=== PATIENT | female | born 1955 | race Caucasian/White ===

== ENCOUNTER 2018-06-11 11:21 | Inpatient (IN) ==
[2018-06-11] MEDS ORDERED: *HR* HYDROcodone/Acet 5/325 mg TABLET PO ONE (11:30)
--- NOTE | 2018-06-11 11:34 | Emergency Department Note ---
Disposition Clinical Impression: Femoral fracture Qualifiers: Encounter type: initial encounter Femur location: distal physis (incl. Salter- Bermudez) Salter-Bermudez Fracture Type: unspecified configuration Laterality: right Qualified Code(s): S79.101A - Unspecified physeal fracture of lower end of right femur, initial encounter for closed fracture Phalanx fracture, foot Qualifiers: Encounter type: initial encounter Toe: great toe Fracture type: closed Phalanx: unspecified phalanx Fracture alignment: nondisplaced Laterality: left Qualified Code(s): S92.405A - Nondisplaced unspecified fracture of left great toe, initial encounter for closed fracture Disposition: Admitted As Inpatient General Adult HPI - General Chief complaint: ED Extremity Injury, Lower Stated complaint: fall Time Seen by Provider: 06/11/18 11:25 Source: patient Limitations: no limitations Nursing Notes Reviewed: Yes Vital Signs Reviewed: Yes - History of Present Illness HPI Narrative: 62-year-old female with a BMI 54 presents with fall evaluation. The patient was tripped on carpet and fell forward on her knees this morning. She supported herself with the right elbow. Patient could not stand up after the injury. Patient complaint of bilateral knees pain, left great toe pain, and right elbow pain. Patient denied loss of consciousness. Pain Scale: 7 - Related Data Home Medications Medication Instructions Recorded Confirmed Aspirin [Ecotrin] 325 mg PO DAILY 09/20/17 09/20/17 Atorvastatin [Lipitor] 40 mg PO HS 09/20/17 09/20/17 Clopidogrel [Plavix] 75 mg PO DAILY 09/20/17 09/20/17 Insulin Aspart Prot/Insuln Asp 30 unit SQ QPM 09/20/17 09/20/17 [Novolog Mix 70-30 Vial] Insulin Aspart Prot/Insuln Asp 40 unit SQ QAM 09/20/17 09/20/17 [Novolog Mix 70-30 Vial] OxyCODONE/APAP 5/325 [Percocet 1 each PO Q8HR PRN 09/20/17 09/20/17 5/325 MG] Allergies Allergy/AdvReac Type Severity Reaction Status Date / Time No Known Allergies Allergy Verified 06/17/15 20:42 Constitutional: Denies: fever, chills Eyes: Denies: eye pain ENT ED: Denies: ear pain Cardiovascular: Denies: chest pain Respiratory: Denies: cough Gastrointestinal: Denies: abdominal pain Genitourinary: Denies: urgency Musculoskeletal: Reports: joint swelling, arthralgia. 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 - Social History Smoking Status: Never smoker Smokeless Tobacco Status: No Alcohol use: Reports: rarely Drug use: Reports: none Physical Exam - General Limitations: no limitations General appearance: alert, in no apparent distress - Head Head exam: atraumatic - Eye Eye exam: Present: normal appearance - ENT ENT exam: normal exam - Neck Neck exam: Present: normal inspection - Chest Chest inspection: Present: normal inspection - Respiratory Respiratory exam: Present: normal lung sounds bilaterally - Cardiovascular Cardiovascular exam: Present: regular rate - Abdominal Exam Abdominal exam: Present: soft, Non-Tender - Expanded Upper Extremity Exam Elbow exam: Present: normal inspection, full ROM, tenderness - Expanded Lower Extremity Exam Upper leg exam: Present: tenderness, swelling. Absent: normal inspection, full ROM Knee exam: Present: tenderness, swelling. Absent: normal inspection, full ROM Foot/toe exam: Present: normal inspection, full ROM, tenderness Neurovascular/Tendon exam: Present: normal capillary refill - Back Exam Back exam: Present: normal inspection - Neurological Exam Neurological exam: Present: alert, oriented X3 - Psychiatric Psychiatric exam: Present: normal affect - Skin Skin exam: Present: warm, intact Course Vital Signs Temperature 0 F L 06/11/18 11:26 Pulse Rate 75 06/11/18 11:26 Respiratory Rate 16 06/11/18 11:26 Blood Pressure 101/63 06/11/18 11:26 O2 Sat by Pulse Oximetry 97 06/11/18 11:26 Temperature 0 F L 06/11/18 11:26 Pulse Rate 75 06/11/18 11:26 Respiratory Rate 16 06/11/18 11:26 Blood Pressure 101/63 06/11/18 11:26 O2 Sat by Pulse Oximetry 97 06/11/18 11:26 Oxygen Delivery Oxygen Delivery Room Air Medical Decision Making - MDM Narrative Medical decision making narrative: 62 year old female with history of diabetes, BMI 54 presents with fall evaluation. Pt was tripped on carpet and fell on her knee. She caught herself with right elbow. Pt couldn't stand up after the injury. Pt complain of bilateral knees pain, left great toe pain and right elbow pain. Xr indicated distal left femoral fracture and left 1st proximal phalanx fracture. Spoke with Orthopedics Dr. Watt regarding femoral fracture. Dr. Watt suggested to admit the patient in hospital for possible surgery. Knee immobolizer applied in ER. NPO from now. Pt and her family understand and agree the above plan. Dr. Landers has seen the patient and agrees the above plan. - Lab Data Lab results reviewed: Yes I reviewed the patient's lab results. Result diagrams: 06/11/18 13:03 06/11/18 13:03 Lab Results 06/11/18 06/11/18 06/11/18 Range/Units 13:03 13:03 13:03 WBC 12.4 H (4.3-11.1) K/mcL RBC 4.07 (3.82-4.97) M/mcL Hgb 12.2 (11.5-15.4) g/dL Hct 38.7 (35.3-44.9) % MCV 95.1 (83.0-100.0) fL MCH 30.0 (28.0-33.3) pg MCHC 31.5 L (31.6-35.5) g/dL RDW 14.3 (11.5-14.5) % Plt Count 231 (140-400) K/mcL MPV 9.1 L (9.4-12.4) fL Immature Gran % 0.5 (0-4) % Seg Neutrophils % 78.6 % Lymphocytes % 14.3 % Monocytes % 5.4 % Eosinophils % 0.8 % Basophils % 0.4 % Neutrophils # 9.8 H (1.6-8.9) K/mcL Lymphocytes # 1.8 (0.6-4.6) K/mcL Monocytes # 0.7 (0.0-1.3) K/mcL Eosinophils # 0.1 (0.0-0.6) K/mcL Basophils # 0.1 (0.0-0.2) K/mcL PT 11.9 (9.4-12.1) Seconds INR 1.1 Sodium 138 (136-145) mEq/L Potassium 3.8 (3.5-5.1) mEq/L Chloride 103 (98-107) mEq/L Carbon Dioxide 24 (23-29) mEq/L BUN 14 (8-23) mg/dL Creatinine 1.05 (0.60-1.20) mg/dL Est GFR ( Amer) > 60 (> 60) Est GFR (Non-Af Amer) 53 L (> 60) BUN/Creatinine Ratio 13 (6-26) Glucose 101 (70-105) mg/dL Calculated Osmolality 287 (280-300) Calcium 9.5 (8.6-10.3) mg/dL Total Bilirubin 0.5 (0.3-1.0) mg/dL AST 15 (13-39) Units/L ALT 16 (7-52) Units/L Alkaline Phosphatase 64 (34-104) Units/L Serum Total Protein 7.0 (6.4-8.9) g/dL Albumin 4.2 (3.5-5.7) g/dL Globulin 2.8 (2.4-3.5) g/dL Albumin/Globulin Ratio 1.5 (1.1-2.2) - Radiology Data Radiology results reviewed: Yes I reviewed the patient's radiology results. HISTORY: ORDERING SYSTEM PROVIDED HISTORY: right knee injury FINDINGS: Comminuted fracture of the distal femur above the condyles with medial displacement of the distal dominant fragment. Mild apex anterior angulation. Partially-threaded screws and cerclage wire in patella without evidence of complication. Mild tricompartment loss of joint space. Lipohemarthrosis is noted. Soft tissues are swollen. XR/XR knee 4V RT IMPRESSION: Comminuted fracture of the distal femur. D/ / Bruce Vargas MD / Bruce Vargas MD Interpreting Provider: Bruce Vargas MD ORY: ORDERING SYSTEM PROVIDED HISTORY: left great toe injury Left foot pain after fall today. Initial evaluation. FINDINGS: Diffuse osseous demineralization. Acute nondisplaced and potentially intra-articular fracture involving the medial base of the 1st proximal phalanx. Joints maintain anatomic alignment. Calcaneal enthesophyte at the insertion of Achilles tendon. Moderate arthropathic changes of the talonavicular joint with mild involvement of the naviculocuneiform joint. No obvious acute soft tissue abnormality. XR/XR foot 3V LT IMPRESSION: 1. Acute nondisplaced, potentially intra-articular fracture involving the medial base left 1st proximal phalanx. 2. 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 3. Bony demineralization. D/ / Gonzalo Mnedoza MD / Gonzalo Mendoza MD Interpreting Provider: Gonzalo Mendoza MD ORY: ORDERING SYSTEM PROVIDED HISTORY: left knee injury Initial encounter. Acute bilateral knee pain after trip and fall over curb. FINDINGS: There is prepatellar soft tissue swelling suggesting a prepatellar soft tissue hematoma. No evidence of joint effusion. No acute fracture or dislocation. Normal alignment. No significant joint space narrowing. XR/XR knee 4V LT IMPRESSION: No acute fracture or dislocation. No joint effusion. Prepatellar soft tissue hematoma/contusion. D/ / Imtiaz Gr MD / Imtiaz Gr MD Interpreting Provider: Imtiaz Gr MD ARISON: None. HISTORY: ORDERING SYSTEM PROVIDED HISTORY: right elbow injury FINDINGS: Olecranon enthesopathy is noted. No evidence for effusion. No evidence for fracture or dislocation. XR/XR elbow complete RT IMPRESSION: No evidence of bony injury. Olecranon enthesopathy is noted incidentally. D/ / Alexis Bazan MD / Alexis Bazan MD Interpreting Provider: Alexis Bazan MD Attestation Statement - Attestation Attestation: I, Kong Landers DO have provided [id number] time during the care of this patient. Detailed review the presentation, symptoms, medical history were discussed and reviewed with the advanced practice provider Adalberto Blake PA-C/SLAG EXPANDER. Medical intervention labs and imaging studies were reviewed in detail. See full documentation of physical exam and course of care in the advanced practice provider's note. I agree with the determined course of care, medical intervention and disposition put forth by the advanced practice provider. See below documentation for changes or alterations in documentation.
[2018-06-11 13:15] LABS: Basophils # 0.1 K/mcL (0.0-0.2); Basophils % 0.4 %; Eosinophils # 0.1 K/mcL (0.0-0.6); Eosinophils % 0.8 %; Hematocrit 38.7 % (35.3-44.9); Hemoglobin 12.2 g/dL (11.5-15.4); Immature Granulocytes % 0.5 % (0-4); Lymphocytes # 1.8 K/mcL (0.6-4.6); Lymphocytes % 14.3 %; Mean Corpuscular HGB Conc 31.5 g/dL (31.6-35.5); Mean Corpuscular Volume 95.1 fL (83.0-100.0); Mean Platelet Volume 9.1 fL (9.4-12.4); Monocytes # 0.7 K/mcL (0.0-1.3); Monocytes % 5.4 %; Neutrophils # 9.8 K/mcL (1.6-8.9); Platelet Count 231 K/mcL (140-400); Red Blood Count 4.07 M/mcL (3.82-4.97); Red Cell Distribution Width 14.3 % (11.5-14.5); Segmented Neutrophils % 78.6 %
[2018-06-11 13:23] LABS: INR 1.1; Prothrombin Time 11.9 Seconds (9.4-12.1)
[2018-06-11 13:35] LABS: Alanine Aminotransferase 16 Units/L (7-52); Albumin 4.2 g/dL (3.5-5.7); Albumin/Globulin Ratio 1.5 (1.1-2.2); Alkaline Phosphatase 64 Units/L (34-104); Aspartate Amino Transferase 15 Units/L (13-39); BUN/Creatinine Ratio 13 (6-26); Bilirubin,Total 0.5 mg/dL (0.3-1.0); Blood Urea Nitrogen 14 mg/dL (8-23); Calcium 9.5 mg/dL (8.6-10.3); Carbon Dioxide 24 mEq/L (23-29); Chloride 103 mEq/L (98-107); Globulin 2.8 g/dL (2.4-3.5); Glucose 101 mg/dL (70-105); Osmolality,Calculated 287 (280-300); Potassium 3.8 mEq/L (3.5-5.1); Sodium 138 mEq/L (136-145); eGFR For Non-African Americans 53 (> 60)
--- NOTE | 2018-06-11 13:47 | Emergency Department Note ---
Disposition Clinical Impression: Femoral fracture Qualifiers: Encounter type: initial encounter Femur location: distal physis (incl. Salter- Bermudez) Salter-Bermudez Fracture Type: unspecified configuration Laterality: right Qualified Code(s): S79.101A - Unspecified physeal fracture of lower end of right femur, initial encounter for closed fracture Phalanx fracture, foot Qualifiers: Encounter type: initial encounter Toe: great toe Fracture type: closed Phalanx: unspecified phalanx Fracture alignment: nondisplaced Laterality: left Qualified Code(s): S92.405A - Nondisplaced unspecified fracture of left great toe, initial encounter for closed fracture Disposition: Admitted As Inpatient Condition: Good Referrals: Tani Mcclure DO [Primary Care Provider] - Forms: ED Satisfaction Letter Time of Disposition: 14:14 General Adult HPI - General Chief complaint: ED Extremity Injury, Lower Stated complaint: fall Time Seen by Provider: 06/11/18 11:25 Source: patient Limitations: no limitations - History of Present Illness Pain Scale: 7 - Related Data Home Medications Medication Instructions Recorded Confirmed Aspirin [Ecotrin] 325 mg PO DAILY 09/20/17 09/20/17 Atorvastatin [Lipitor] 40 mg PO HS 09/20/17 09/20/17 Clopidogrel [Plavix] 75 mg PO DAILY 09/20/17 09/20/17 Insulin Aspart Prot/Insuln Asp 30 unit SQ QPM 09/20/17 09/20/17 [Novolog Mix 70-30 Vial] Insulin Aspart Prot/Insuln Asp 40 unit SQ QAM 09/20/17 09/20/17 [Novolog Mix 70-30 Vial] OxyCODONE/APAP 5/325 [Percocet 1 each PO Q8HR PRN 09/20/17 09/20/17 5/325 MG] Allergies Allergy/AdvReac Type Severity Reaction Status Date / Time No Known Allergies Allergy Verified 06/17/15 20:42 Constitutional: Denies: fever, chills Eyes: Denies: eye pain ENT ED: Denies: ear pain Cardiovascular: Denies: chest pain Respiratory: Denies: cough Gastrointestinal: Denies: abdominal pain Genitourinary: Denies: urgency Musculoskeletal: Reports: joint swelling, arthralgia. 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 - Social History Smoking Status: Never smoker Smokeless Tobacco Status: No Alcohol use: Reports: rarely Drug use: Reports: none Physical Exam - General Limitations: no limitations General appearance: alert, in no apparent distress Course Vital Signs Temperature 0 F L 06/11/18 11:26 Pulse Rate 75 06/11/18 11:26 Respiratory Rate 16 06/11/18 11:26 Blood Pressure 101/63 06/11/18 11:26 O2 Sat by Pulse Oximetry 97 06/11/18 11:26 Temperature 0 F L 06/11/18 11:26 Pulse Rate 76 06/11/18 13:56 Respiratory Rate 16 06/11/18 13:56 Blood Pressure 159/107 06/11/18 13:56 O2 Sat by Pulse Oximetry 95 06/11/18 13:56 Oxygen Delivery Oxygen Delivery Room Air Medical Decision Making - Lab Data Result diagrams: 06/11/18 13:03 06/11/18 13:03 Lab Results 06/11/18 06/11/18 06/11/18 Range/Units 13:03 13:03 13:03 WBC 12.4 H (4.3-11.1) K/mcL RBC 4.07 (3.82-4.97) M/mcL Hgb 12.2 (11.5-15.4) g/dL Hct 38.7 (35.3-44.9) % MCV 95.1 (83.0-100.0) fL MCH 30.0 (28.0-33.3) pg MCHC 31.5 L (31.6-35.5) g/dL RDW 14.3 (11.5-14.5) % Plt Count 231 (140-400) K/mcL MPV 9.1 L (9.4-12.4) fL Immature Gran % 0.5 (0-4) % Seg Neutrophils % 78.6 % Lymphocytes % 14.3 % Monocytes % 5.4 % Eosinophils % 0.8 % Basophils % 0.4 % Neutrophils # 9.8 H (1.6-8.9) K/mcL Lymphocytes # 1.8 (0.6-4.6) K/mcL Monocytes # 0.7 (0.0-1.3) K/mcL Eosinophils # 0.1 (0.0-0.6) K/mcL Basophils # 0.1 (0.0-0.2) K/mcL PT 11.9 (9.4-12.1) Seconds INR 1.1 Sodium 138 (136-145) mEq/L Potassium 3.8 (3.5-5.1) mEq/L Chloride 103 (98-107) mEq/L Carbon Dioxide 24 (23-29) mEq/L BUN 14 (8-23) mg/dL Creatinine 1.05 (0.60-1.20) mg/dL Est GFR ( Amer) > 60 (> 60) Est GFR (Non-Af Amer) 53 L (> 60) BUN/Creatinine Ratio 13 (6-26) Glucose 101 (70-105) mg/dL Calculated Osmolality 287 (280-300) Calcium 9.5 (8.6-10.3) mg/dL Total Bilirubin 0.5 (0.3-1.0) mg/dL AST 15 (13-39) Units/L ALT 16 (7-52) Units/L Alkaline Phosphatase 64 (34-104) Units/L Serum Total Protein 7.0 (6.4-8.9) g/dL Albumin 4.2 (3.5-5.7) g/dL Globulin 2.8 (2.4-3.5) g/dL Albumin/Globulin Ratio 1.5 (1.1-2.2) Attestation Statement - Attestation Attestation: I, Kong Landers DO have provided [id number] time during the care of this patient. Detailed review the presentation, symptoms, medical history were discussed and reviewed with the advanced practice provider Adalberto Blake PA-C/ROBOT TECHNICIAN. Medical intervention labs and imaging studies were reviewed in detail. See full documentation of physical exam and course of care in the advanced practice provider's note. I agree with the determined course of care, medical intervention and disposition put forth by the advanced practice provider. See below documentation for changes or alterations in documentation. 62-year-old female presents emergency room for evaluation of a mechanical fall. Patient tripped falling forward landing on both knees. Her right knee had significant pain and deformity directly after the event. She also injured her left ankle. She denied any loss of consciousness. She had no chest pain shortness breath headache vision changes nausea vomiting or diarrhea prior to these events. She is otherwise speaking full sentences. She arrived to the emergency room complaining of pain. She had imaging modalities completed the bilateral knees and ankle. Patient is found to have a supracondylar fracture to the distal femur. She is neurologically intact on exam. The compartments are soft. She has good pulses in the DP and PT distributions bilaterally. Remainder of her lower extremities clothing will be removed. On-call orthopedic physician Dr. Watt reviewed the case and recommended admission. Patient other imaging modalities completed the did not show any other acute etiology at this time. Patient will have preoperative evaluation completed with EKG CBC chemistry and electrolytes. Patient be monitored here in the emergency department until the admission process is completed. No other acute concerns or issues no this time. See detailed documentation the physical exam, medical intervention, medical decision-making and disposition in the advanced practice provider's note. No critical care by the patient's treatment course at this time.
[2018-06-11] MEDS ORDERED: Naloxone 0.4 MG/ML INJ IVP PRN (13:58)
[2018-06-11] MEDS ORDERED: D5% in Water 1,000 ML IVC PRN (14:03)
[2018-06-11] MEDS ORDERED: Dextrose Gel 15 GM/37.5 ML TUBE PO PRN ×2 (14:03)
[2018-06-11] MEDS ORDERED: *HR* Dextrose 50 % in Water (Syg) 50 ML SYRINGE IVP PRN (14:03)
[2018-06-11] MEDS ORDERED: *HR* Morphine 2 MG/ML SYRINGE IVP ONE (14:14)
[2018-06-11] MEDS ORDERED: D5% in 0.45% NACL 1,000 ML IVC SCH (14:15)
--- NOTE | 2018-06-11 14:44 | Orthopedic Consult Note ---
Date of Encounter: 06/11/18 Time of Encounter: 14:42 Assessment and Plan (1) Femoral fracture Current Visit: Yes Status: Acute Qualifiers: Encounter type: initial encounter Femur location: distal physis (incl. Salter-Bermudez) Salter-Bermudez Fracture Type: unspecified configuration Laterality: right Qualified Code(s): S79.101A - Unspecified physeal fracture of lower end of right femur, initial encounter for closed fracture History of Present Illness Chief complaint: right thigh pain HPI: Ms. Altamirano is a 62 year old female presenting to [facility] after a fall earlier today. She states she was walking out of a store and fell, landing on her knees. She denies tripping though admits there was a step down. She denies LOC, chest pain, shortness of breath, or giving out of the leg. At present she c/o pain in the right leg and paresthesia to the right posterior knee and leg. She admits to [facility] of stroke in 2014 since which she has taken Plavix and Aspirin daily. She states she is also an insulin dependent diabetic. She denies cardiac history. She reports a remote history of smoking. She denies history of osteoporosis or osteopenia. S/p right patella ORIF by Dr. Camarillo on 09/20/17. Patient seen by Dr. Camarillo on 05/10 and was found to be doing well though with completion of PT though was instructed to use cane with ambulation long distances. Radiologist's interpretation reads as follows: Comminuted fracture of the distal femur above the condyles with medial displacement of the distal dominant fragment. Mild apex anterior angulation. Partially-threaded screws and cerclage wire in patella without evidence of complication. Mild tricompartment loss of joint space. Lipohemarthrosis is noted. On exam patient lying supine in bed, spouse at bedside. Gross deformity of the right lower extremity noted. Abrasion to the right anterior knee. No disruption apparent of right anterior knee incision noted. No calf warmth or erythema noted. Swelling about the knee noted. Moderate tenderness to palpation about the knee and lower leg. Ankle and toe motion full and intact to RLE. Left foot demonstrates mild bruising to left great toe, otherwise unremarkable. Mild tenderness. Motion intact. Vascularly intact bilateral lower extremities. Assessment: Mildly displaced comminuted right distal femur fracture Plan: Case discussed with Dr. Watt Status discussed at length with patient and spouse Surgical intervention recommended for: Right distal femur open reduction and internal fixation on 06/13 Informed consent reviewed at length with patient and spouse and following satisfactory answering of questions and concerns, consent obtained. CT scan for surgical planning Medical optimization required Patient to be NPO midnight 06/13 for sugery Case discussed with Dr. Lundberg, hospitalist. Ice and Lidoderm patch added. Abrasion skin care requested from nursing. Podiatry consulted for evaluation and management of great toe fracture - call completed to Dr. Godoy Thank you for this consultation. Past Med Surg Social Fam HX - Past Medical History Medical history: CVA, DVT, diabetes, hyperlipidemia Psychiatric history: no psych history - Past Surgical History Surgical History: appendectomy, cholecystectomy Additional surgical history: ectopic x2, throat sx x3 - Social History Smoking Status: Never smoker Smokeless Tobacco Status: No Alcohol use: rarely Drug use: none Medications and Allergies Aspirin [Ecotrin] 325 mg PO DAILY 09/20/17 [History] Atorvastatin [Lipitor] 40 mg PO HS 09/20/17 [History] Clopidogrel [Plavix] 75 mg PO DAILY 09/20/17 [History] Insulin Aspart Prot/Insuln Asp [Novolog Mix 70-30 Vial] 30 unit SQ QPM 09/20/17 [History] Insulin Aspart Prot/Insuln Asp [Novolog Mix 70-30 Vial] 40 unit SQ QAM 09/20/17 [History] OxyCODONE/APAP 5/325 [Percocet 5/325 MG] 1 each PO Q8HR PRN 09/20/17 [History] Allergy/AdvReac Type Severity Reaction Status Date / Time No Known Allergies Allergy Verified 06/17/15 20:42 All Systems Reviewed: The remainder of the systems were reviewed and are negative Physical Exam - Constitutional Vitals: Temp Pulse Resp BP Pulse Ox 0 F L 76 16 159/107 95 06/11/18 11:26 06/11/18 13:56 06/11/18 13:56 06/11/18 13:56 06/11/18 13:56 Results - Labs Result Diagrams: 06/11/18 13:03 06/11/18 13:03 Labs: Abnormal lab results WBC 12.4 K/mcL (4.3-11.1) H 06/11/18 13:03 MCHC 31.5 g/dL (31.6-35.5) L 06/11/18 13:03 MPV 9.1 fL (9.4-12.4) L 06/11/18 13:03 9.8 K/mcL (1.6-8.9) H 06/11/18 13:03 Est GFR (Non-Af Amer) 53 (> 60) L 06/11/18 13:03 H & H 06/11/18 Range/Units 13:03 Hgb 12.2 (11.5-15.4) g/dL Hct 38.7 (35.3-44.9) % All other labs normal. Consult Discharge Plan - Plan Referrals: Tani Mcclure DO [Primary Care Provider] -
--- NOTE | 2018-06-11 15:36 | Internal Med History&Physical ---
Date of Encounter: 06/11/18 Time of Encounter: 15:30 Internal Medicine - H&P: HPI Chief complaint: fall. right lower extr pain Plans for Post Hospital Care: Home History of present illness: Ms. 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 Patient presented to the ED following a fall. Patient reports that today while she was walking on her way out of a store she fell to the ground and started having right lower extremity pain. She denies light headedness, palpitation or seizures like activities before falling. denies loosing consciousness, or hitting her head. she reports that she just fell. Reported she had a similar fall last year and she broke her right patellar bone. she denies chest pain, shortness of breath, nausea or vomiting. denies fever or chills. In the ED patient found to have Comminuted fracture of the distal femur. 1. Acute nondisplaced, potentially intra-articular fracture involving the medial base left 1st proximal phalanx. Hospitalist called to coordinate patient's care. Past Med Surg Social Fam HX - Past Medical History Medical history: CVA, DVT, diabetes, hyperlipidemia Psychiatric history: no psych history - Past Surgical History Surgical History: appendectomy, cholecystectomy Additional surgical history: ectopic x2, throat sx x3 - Social History Smoking Status: Never smoker Smokeless Tobacco Status: No Alcohol use: rarely Drug use: none Internal Medicine - H&P: Meds Aspirin [Ecotrin] 325 mg PO DAILY 09/20/17 [History] Atorvastatin [Lipitor] 40 mg PO HS 09/20/17 [History] Clopidogrel [Plavix] 75 mg PO DAILY 09/20/17 [History] Insulin Aspart Prot/Insuln Asp [Novolog Mix 70-30 Vial] 30 unit SQ QPM 09/20/17 [History] Insulin Aspart Prot/Insuln Asp [Novolog Mix 70-30 Vial] 40 unit SQ QAM 09/20/17 [History] OxyCODONE/APAP 5/325 [Percocet 5/325 MG] 1 each PO Q8HR PRN 09/20/17 [History] Allergy/AdvReac Type Severity Reaction Status Date / Time No Known Allergies Allergy Verified 06/17/15 20:42 All Systems PM: A 10-system review of systems was performed and is negative for pertinent findings except as documented above in the HPI. - Constitutional Constitutional: no chills, no fever(s), no weakness - EENT Eyes: no diplopia, no irritation Nose, mouth and throat: no dry mouth, no mouth pain - Cardiovascular Cardiovascular ROS IM: no chest pain, no dyspnea, no edema, no lightheadedness, no orthopnea, no palpitations, no paroxysmal nocturnal dyspnea - Respiratory Respiratory: no cough, no wheezing - Gastrointestinal Gastrointestinal: no abdominal pain, no nausea, no vomiting - Genitourinary Genitourinary: no dysuria, no urinary frequency, no urinary urgency - Musculoskeletal Musculoskeletal ROS IM: other (right hip pain) - Integumentary Integumentary IM: no erythema, no sores - Neurological Neurological ROS: no headache(s), no lack of coordination, no numbness - Psychiatric Psychiatric: no anxiety, no irritability - Endocrine Endocrine IM: no cold intolerance, no excessive sweating - Hematologic/Lymphatic Hematologic/Lymphatic: no lymphadenopathy - Allergic/Immunologic Allergic/Immunologic: no GI upset with certain foods - Constitutional Vitals: Temp Pulse Resp BP Pulse Ox 98.3 F 78 17 169/54 94 06/11/18 15:04 06/11/18 15:04 06/11/18 15:04 06/11/18 15:04 06/11/18 15:04 Exam: Vitals: Reviewed. General: Alert and oriented x4. In moderated distress due to right hip pain. Skin: Normal color, no rash, no lesions. HEENT: EOM, pupils equal, round and reactive. Cardiovascular: Normal S1 & S2, no rubs, murmurs or gallops. No JVD. Pulse regular. Lungs: CTA b/l, no wheezes or crackles. Abdomen: Obese, Soft, non-tender, no rigidity. Extremities: No edema. contusion/hematona of the left knee Neurological: Normal cognition and motor skills. Rest of the physical exam is non contributory Internal Med - H&P Results - Labs CBC & Chem 7: 06/11/18 13:03 06/11/18 13:03 Labs: Short CBC 06/11/18 Range/Units 13:03 WBC 12.4 H (4.3-11.1) K/mcL Hgb 12.2 (11.5-15.4) g/dL Hct 38.7 (35.3-44.9) % Plt Count 231 (140-400) K/mcL Neutrophils # 9.8 H (1.6-8.9) K/mcL BMP 06/11/18 13:03 Sodium 138 Potassium 3.8 Chloride 103 Carbon Dioxide 24 BUN 14 Creatinine 1.05 Glucose 101 Calcium 9.5 Liver Function 06/11/18 Range/Units 13:03 Total Bilirubin 0.5 (0.3-1.0) mg/dL AST 15 (13-39) Units/L ALT 16 (7-52) Units/L Alkaline Phosphatase 64 (34-104) Units/L Albumin 4.2 (3.5-5.7) g/dL - Impressions ITS Impressions Elbow X-Ray 06/11/18 11:29 IMPRESSION: No evidence of bony injury. Olecranon enthesopathy is noted incidentally. D/ / Alexis Bazan MD / Alexis Bazan MD Interpreting Provider: Alexis Bazan MD Foot X-Ray 06/11/18 11:29 IMPRESSION: 1. Acute nondisplaced, potentially intra-articular fracture involving the medial base left 1st proximal phalanx. 2. 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 3. Bony demineralization. D/ / Gonzalo Mendoza MD / Gonzalo Mendoza MD Interpreting Provider: Gonzalo Mendoza MD Knee X-Ray 06/11/18 11:29 IMPRESSION: No acute fracture or dislocation. No joint effusion. Prepatellar soft tissue hematoma/contusion. D/ / Imtiaz Gr MD / Imtiaz Gr MD Interpreting Provider: Imtiaz Gr MD Knee X-Ray 05/06/19 11:29 IMPRESSION: Comminuted fracture of the distal femur. D/ / Bruce Vargas MD / Bruce Vargas MD Interpreting Provider: Bruce Vargas MD Chest X-Ray 06/11/18 12:52 IMPRESSION: Negative chest. D/ / Ramírez Hu MD / Ramírez Hu MD Interpreting Provider: Ramírez Hu MD - Diagnostic Studies Other Images Status: image reviewed by me (fracture of the distal femur) - Assessment and Plan (1) Femoral fracture Current Visit: Yes Status: Acute Assessment and plan: XR/XR knee 4V RT IMPRESSION: Comminuted fracture of the distal femur. Plan ortho team consulted started on Laurens 5-325mg/PO 1tab Q6HR PRN and oxycone 5gm SL Q6HRs for pain control. PT/OT and social media marketing specialist ordered Qualifiers: Encounter type: initial encounter Femur location: distal physis (incl. Salter-Bermudez) Salter-Bermudez Fracture Type: unspecified configuration Laterality: right Qualified Code(s): S79.101A - Unspecified physeal fracture of lower end of right femur, initial encounter for closed fracture (2) Phalanx fracture, foot Current Visit: Yes Status: Acute Assessment and plan: plan of care as above. Qualifiers: Encounter type: initial encounter Toe: great toe Fracture type: closed Phalanx: unspecified phalanx Fracture alignment: nondisplaced Laterality: left Qualified Code(s): S92.405A - Nondisplaced unspecified fracture of left great toe, initial encounter for closed fracture (3) HLD (hyperlipidemia) Current Visit: Yes Status: Chronic Assessment and plan: continue atorvastatin home dose. Qualifiers: Hyperlipidemia type: unspecified Qualified Code(s): E78.5 - Hyperlipidemia, unspecified (4) Diabetes Current Visit: Yes Status: Chronic Assessment and plan: patient NPO for possible surgery. accu-checks Q6HRs plus low dose lispro sliding scale. A1c ordered Qualifiers: Diabetes mellitus type: type 2 Diabetes mellitus complication status: with unspecified complications Qualified Code(s): E11.8 - Type 2 diabetes mellitus with unspecified complications (5) History of CVA (cerebrovascular accident) Current Visit: Yes Status: Chronic Assessment and plan: report having a cva in 2014 with no residual weakness. On dual antiplatelets. continue aspirin. will resume plavix post op. (6) DVT prophylaxis Current Visit: Yes Status: Acute Assessment and plan: started on heparin subq (7) Morbid obesity with BMI of 50.0-59.9, adult Current Visit: Yes Status: Chronic (8) Leukocytosis Current Visit: Yes Status: Acute Assessment and plan: most likely reactive due to pain. no signs of active infection. Qualifiers: Leukocytosis type: unspecified Qualified Code(s): D72.829 - Elevated white blood cell count, unspecified - Time Spent With Patient Total time spent is greater than 50% in coordination of care (as documented) at patient's floor/unit and/or counseling patient: Greater than 35 minutes (40)
[2018-06-11 15:54] LABS: Estimated Average Glucose 180 mg/dl; Hemoglobin A1C 7.9 %
[2018-06-11] MEDS: OXYCODONE Oral CONC 10 MG/0.5 ML ORAL.SYG SL PRN (16:46)
[2018-06-11] MEDS ORDERED: Insulin LISPRO 300 UNITS/3 ML VIAL SQ SCH (18:00)
[2018-06-11] MEDS: *HR* Heparin 5,000 UNIT/ML VIAL SQ SCH (20:38)
[2018-06-11] MEDS: *HR* HYDROcodone/Acet 5/325 mg TABLET PO PRN (20:38)
[2018-06-11] MEDS: Insulin LISPRO 300 UNITS/3 ML VIAL SQ SCH (22:12)
[2018-06-12] MEDS: OXYCODONE Oral CONC 10 MG/0.5 ML ORAL.SYG SL PRN ×2 (03:53→20:32)
[2018-06-12 04:28] LABS: Basophils # 0.1 K/mcL (0.0-0.2); Basophils % 0.5 %; Eosinophils # 0.2 K/mcL (0.0-0.6); Eosinophils % 1.7 %; Hematocrit 35.3 % (35.3-44.9); Hemoglobin 11.3 g/dL (11.5-15.4); Immature Granulocytes % 0.3 % (0-4); Lymphocytes # 2.3 K/mcL (0.6-4.6); Lymphocytes % 21.1 %; Mean Corpuscular Hemoglobin 30.4 pg (28.0-33.3); Mean Corpuscular Volume 94.9 fL (83.0-100.0); Mean Platelet Volume 9.4 fL (9.4-12.4); Monocytes # 0.7 K/mcL (0.0-1.3); Monocytes % 6.6 %; Neutrophils # 7.5 K/mcL (1.6-8.9); Platelet Count 230 K/mcL (140-400); Red Blood Count 3.72 M/mcL (3.82-4.97); Red Cell Distribution Width 14.5 % (11.5-14.5); Segmented Neutrophils % 69.8 %
[2018-06-12 04:39] LABS: BUN/Creatinine Ratio 12 (6-26); Blood Urea Nitrogen 12 mg/dL (8-23); Carbon Dioxide 26 mEq/L (23-29); Chloride 103 mEq/L (98-107); Glucose 122 mg/dL (70-105); Magnesium 2.1 mg/dL (1.6-2.6); Osmolality,Calculated 285 (280-300); Phosphorous 3.7 mg/dL (2.7-4.5); Potassium 3.9 mEq/L (3.5-5.1); Sodium 137 mEq/L (136-145); eGFR For Non-African Americans 54 (> 60)
[2018-06-12] MEDS: *HR* Heparin 5,000 UNIT/ML VIAL SQ SCH ×3 (05:23→20:33)
--- NOTE | 2018-06-12 06:50 | Orthopedics Progress Note ---
Date of Encounter: 06/12/18 Time of Encounter: 06:49 Subjective Interval history: Patient seen this morning, displaced right femoral shaft fracture CT scan reviewed, minimal intra-articular extension, on exam patient is neurovascularly intact, plan is for right femur open reduction internal fixation. We reviewed the risks and benefits as well as recovery. All questions were answered. The patient agreed to this treatment plan and acknowledged an understanding of the treatment plan as described. Surgery will be first case in the morning tomorrow Objective Vital signs: Vital Signs Temp Pulse Resp BP Pulse Ox 06/12/18 06:40 99 F 70 15 106/47 92 06/12/18 03:42 98.8 F 72 18 142/67 92 06/11/18 22:56 98.6 F 68 18 113/70 91 06/11/18 20:50 93 06/11/18 18:55 98.4 F 74 18 154/64 93 06/11/18 15:04 98.3 F 78 17 169/54 94 06/11/18 13:56 76 16 159/107 95 06/11/18 11:26 0 F L 75 16 101/63 97 Intake and Output 06/11/18 06/11/18 06/12/18 15:59 23:59 07:59 Intake Total 550 / 550 0 / 0 Output Total 1200 / 1200 Balance 550 / 550 -1200 / -1200 Intake: Oral 550 / 550 0 / 0 Output: Catheter 1200 / 1200 Other: Weight 142.609 kg Blood Glucose* 188 - Labs CBC & BMP: 06/12/18 03:32 06/12/18 03:32 Labs: Abnormal lab results WBC 12.4 K/mcL (4.3-11.1) H 06/11/18 13:03 RBC 3.72 M/mcL (3.82-4.97) L 06/12/18 03:32 Hgb 11.3 g/dL (11.5-15.4) L 06/12/18 03:32 MCHC 31.5 g/dL (31.6-35.5) L 06/11/18 13:03 MPV 9.1 fL (9.4-12.4) L 06/11/18 13:03 9.8 K/mcL (1.6-8.9) H 06/11/18 13:03 Est GFR (Non-Af Amer) 54 (> 60) L 06/12/18 03:32 Glucose 122 mg/dL (70-105) H 06/12/18 03:32 7.9 % (-5.6) H 06/11/18 13:03 Consult Discharge Plan - Plan Referrals: Tani Mcclure DO [Primary Care Provider] -
--- NOTE | 2018-06-12 08:51 | Event Note ---
Date of Encounter: 06/12/18 Time of Encounter: 11:00 Patient seen at bedside. Patient denies questions at this time. States brace is irritating to her. A&Ox3 Abrasions noted to have Alevin applied. No calf tenderness bilaterally Neurovascularly intact. Splint to great toe in place on left foot. NPO midnight 06/13 Surgery first case 06/13 Nonweightbearing with no knee motion to right lower extremity.
[2018-06-12] MEDS: *HR* HYDROcodone/Acet 5/325 mg TABLET PO PRN ×2 (09:07→15:18)
[2018-06-12] MEDS: Insulin LISPRO 300 UNITS/3 ML VIAL SQ SCH ×4 (09:10→20:33)
--- NOTE | 2018-06-12 09:41 | Podiatry Consult Note ---
Date of Encounter: 06/12/18 Time of Encounter: 09:00 Assessment and Plan (1) Phalanx fracture, foot Current visit: Yes Status: Acute 1. Acute nondisplaced, potentially intra-articular fracture involving the medial base left 1st proximal phalanx. 2. 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 3. Bony demineralization. PLAN: Toe is stable at this time. There is minimal edema to toe there is no erythema. Very minimal ecchymosis noted to toe. mild pain with palpation. Limited range of motion to toe however movement of toe is intact. Sensation to toe is intact. Conservative management of toe. Coban splint placed to toe #1 and and secured to toe number two with silk tape to stabilize. Patient notes comfort however reports that if it starts to hurt she is going to remove the splint herself. Patient educated in order for toe to heal properly that it would need to remain stabilized and to limit weightbearing at this time we will obtain postoperative shoe which she will wear with any ambulation or transfers. There are no open areas noted to toes to indicate a open fracture. There are no clinical signs of infection. Hemoglobin A1c is 7.9. 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 Verbalized understanding We will continue to follow. Patient pending orthopedic intervention tomorrow for right femur fracture Qualifiers: Encounter type: initial encounter Toe: great toe Fracture type: closed Phalanx: unspecified phalanx Fracture alignment: nondisplaced Laterality: left Qualified Code(s): S92.405A - Nondisplaced unspecified fracture of left great toe, initial encounter for closed fracture History of Present Illness HPI: Ms. 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 Patient presented to the ED following a fall. P atient reports she fell walking out of a door and believes she hit the right leg and left toe on the steps. Reports she had immediate pain. Reports she has hx of weakness already to the RLE and was undergoing PT. Reports she was suppose to be using a cane but put off obtaining one.. she denies chest pain, shortness of breath, nausea or vomiting. denies fever or chills. CT was obtained of right leg and a femur fracture was noted. A xray of the left foot was obtained which indicated a fracture of the proximal left hallux. Patient reports severe pain to right upper extremity and mild pain to left great toe. Patient pending surgical intervention tomorrow morning with ortho for femur fracture. Patient tearful at bedside. Past Med Surg Social Fam HX - Past Medical History Medical history: CVA, DVT, diabetes, hyperlipidemia Psychiatric history: no psych history - Past Surgical History Surgical History: appendectomy, cholecystectomy Additional surgical history: ectopic x2, throat sx x3 - Social History Smoking Status: Never smoker Smokeless Tobacco Status: No Alcohol use: rarely Drug use: none - Family History Mother Family Member Ethnicity: Non- Hx Family Cardiac Disorders: Yes (pacer) Hx Family Respiratory Disorders: No Hx Family Cancer: No Hx Family GI Disorders: No Hx Family Genitourinary Disorders: No Hx Family Endocrine Disorder: Yes (dm) Hx Family Musculoskeletal Disorders: No Hx Family Neuromuscular Disorders: No Hx Family Neurologic Disorders: No Hx Family HEENT Disorders: No Hx Family Autoimmune Disorders: No Hx Family Reproductive Disorders: No Hx Family Psychosocial Disorders: No Hx Family Medical Disorders: No Medications and Allergies Aspirin [Ecotrin] 325 mg PO DAILY 09/20/17 [History] Atorvastatin [Lipitor] 40 mg PO HS 09/20/17 [History] Clopidogrel [Plavix] 75 mg PO DAILY 09/20/17 [History] Insulin NPH Hum/Reg Insulin Hm [Novolin 70-30 100 Unit/ml Vial] 50 unit SQ BID 06/12/18 [History] metFORMIN [Glucophage] 1,000 mg PO BID 06/12/18 [History] Allergy/AdvReac Type Severity Reaction Status Date / Time No Known Allergies Allergy Verified 06/17/15 20:42 All Systems Reviewed: as per HPI Physical Exam - Constitutional Vitals: Temp Pulse Resp BP Pulse Ox 99 F 87 15 129/77 92 06/12/18 06:40 06/12/18 09:06 06/12/18 06:40 06/12/18 09:06 06/12/18 06:40 Exam: General Examination: CONSTITUTIONAL: Alert, oriented, in no acute distress, non-toxic. EXTREMITIES: CFT 3 seconds all toes. Edema +1 and pedal pulses palpable. SKIN: Skin with decreased turgor, decreased subcutaneous tissue, skin thin and shiny with trophic changes associated with comorbidities as described in history.. NEUROLOGIC: Intact sensation to light her moderate touch. MUSCULOSKELETAL: There is very mild edema noted to toe #1 left. There is minimal ecchymosis noted the toe. There is no erythema or warmth to toe. Patient reports mild pain with palpation of toe. There is no fluctuance or induration noted surrounding the joint line. There are no fracture blisters. There are no open lesions. Patient able to perform limited active range of motion to toe. Reports pain with movement of toe. Sensation tiptoes intact. Cap refill is appropriate Results - Labs Result Diagrams: 06/12/18 03:32 06/12/18 03:32 Labs: Abnormal lab results WBC 12.4 K/mcL (4.3-11.1) H 06/11/18 13:03 RBC 3.72 M/mcL (3.82-4.97) L 06/12/18 03:32 Hgb 11.3 g/dL (11.5-15.4) L 06/12/18 03:32 MCHC 31.5 g/dL (31.6-35.5) L 06/11/18 13:03 MPV 9.1 fL (9.4-12.4) L 06/11/18 13:03 9.8 K/mcL (1.6-8.9) H 06/11/18 13:03 Est GFR (Non-Af Amer) 54 (> 60) L 06/12/18 03:32 Glucose 122 mg/dL (70-105) H 06/12/18 03:32 7.9 % (-5.6) H 06/11/18 13:03 H & H 06/11/18 06/12/18 Range/Units 13:03 03:32 Hgb 12.2 11.3 L (11.5-15.4) g/dL Hct 38.7 35.3 (35.3-44.9) % All other labs normal. Consult Discharge Plan - Plan Referrals: Tani Mcclure DO [Primary Care Provider] -
--- NOTE | 2018-06-12 15:15 | Electrocardiograph Report ---
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
[2018-06-12] MEDS ORDERED: Sennosides/Docusate Sodium TABLET PO PRN (15:53)
--- NOTE | 2018-06-12 15:53 | Internal Med Progress Note ---
Hospitalist Progress Note - Encounter Date of Encounter: 06/12/18 Time of Encounter: 15:52 - Subjective Interval History: I have seen and evaluated the patient bedside. Patient reports that the pain has decreased after the knee brace was removed. Denies chest pain, shortness of breath, nausea or vomiting. - Exam Vitals: Temp Pulse Resp BP Pulse Ox 99.7 F H 85 17 159/74 93 06/12/18 15:48 06/12/18 15:48 06/12/18 15:48 06/12/18 15:48 06/12/18 15:48 Exam: Vitals: Reviewed. General: Alert and oriented x4. In mild distress due to right hip pain. Cardiovascular: Normal S1 & S2, no rubs, murmurs or gallops. No JVD. Pulse regular. Lungs: CTA b/l, no wheezes or crackles. Abdomen: Obese, Soft, non-tender, no rigidity. Extremities: No edema. contusion/hematona of the left knee Neurological: Normal cognition Rest of the physical exam is non contributory - Assessment and Plan (1) Femoral fracture Current Visit: Yes Status: Acute Assessment and Plan: patient is scheduled for surgery tomorrow. continue pain control with oxycodone and norco. will add senna plus. (2) Phalanx fracture, foot Current Visit: Yes Status: Acute Assessment and Plan: contact printer dry film consulted. recommendations appreciated (3) HLD (hyperlipidemia) Current Visit: Yes Status: Chronic Assessment and Plan: on atorvastatin 40mg/PO daily (4) Diabetes Current Visit: Yes Status: Chronic Assessment and Plan: blood sugar is well controlled. on carb controlled diet. lispro medium dose sliding scale, will add levemir 5 units BID (5) History of CVA (cerebrovascular accident) Current Visit: Yes Status: Chronic Assessment and Plan: patient on aspirin 325mg/PO daily, held as patient is scheduled for surgery (6) Morbid obesity with BMI of 50.0-59.9, adult Current Visit: Yes Status: Chronic (7) Leukocytosis Current Visit: Yes Status: Resolved (8) Pre-op evaluation Current Visit: Yes Status: Acute Assessment and Plan: Presently Clinically Stable for Scheduled femur fracture surgery Patient has no Hx of CAD or prio AL, decompensated heart failure, unstable angin a, symptomatic arrhythmias, and symptomatic valvular heart disease. Labs reviewed: Potassium in the low normal, electrolyte replaced. Coags and liver function test within normal. Plan: - Examined this patient, checked all appropriate lab work and tests to the best of my knowledge, there is not a medical contraindication for undergoing surgery with a general and/or regional anesthesia. - Based on risk stratification patient is placed at a Low intermediate risk for the surgery. - EKG ordered - Time Spent with Patient Total time spent is greater than 50% in coordination of care (as documented) at patient's floor/unit and/or counseling patient: Greater than 35 minutes (40) Plan of Care Discussed with: patient (and the nurse) Internal Medicine: Result - Labs CBC & Chem 7: 06/12/18 03:32 06/12/18 03:32 Labs: Short CBC 06/12/18 Range/Units 03:32 WBC 10.7 (4.3-11.1) K/mcL Hgb 11.3 L (11.5-15.4) g/dL Hct 35.3 (35.3-44.9) % Plt Count 230 (140-400) K/mcL Neutrophils # 7.5 (1.6-8.9) K/mcL BMP 06/12/18 03:32 Sodium 137 Potassium 3.9 Chloride 103 Carbon Dioxide 26 BUN 12 Creatinine 1.03 Glucose 122 H Calcium 9.0 - ABG Interpretation ABG results: PT/INR, D-dimer PT 11.9 Seconds (9.4-12.1) 06/11/18 13:03 - Impressions Impressions Femur CT 06/11/18 15:16 IMPRESSION: 1. Comminuted intra-articular distal right femoral fracture centered at the metaphysis with intercondylar extension. There is less than one shaft's width posterior displacement of the distal major fracture fragment with anterior and mild lateral apex angulation. 2. Moderate lipohemarthrosis. 3. Prior intra-articular patellar ORIF. A portion of the fracture plane remains visible. D/ / 06/11/2018 18:59:45 Sean Beatty MD / ernesto Interpreting Provider: Sean Beatty MD Consult Discharge Plan - Plan Referrals: Tani Mcclure DO [Primary Care Provider] - (1) Femoral fracture Qualifiers: Encounter type: initial encounter Femur location: distal physis (incl. Salter-Bermudez) Salter-Bermudez Fracture Type: unspecified configuration Laterality: right Qualified Code(s): S79.101A - Unspecified physeal fracture of lower end of right femur, initial encounter for closed fracture (2) Phalanx fracture, foot Qualifiers: Encounter type: initial encounter Toe: great toe Fracture type: closed Phalanx: unspecified phalanx Fracture alignment: nondisplaced Laterality: left Qualified Code(s): S92.405A - Nondisplaced unspecified fracture of left great toe, initial encounter for closed fracture (3) HLD (hyperlipidemia) Qualifiers: Hyperlipidemia type: unspecified Qualified Code(s): E78.5 - Hyperlipidemia, unspecified (4) Diabetes Qualifiers: Diabetes mellitus type: type 2 Diabetes mellitus complication status: with unspecified complications Qualified Code(s): E11.8 - Type 2 diabetes mellitus with unspecified complications (7) Leukocytosis Qualifiers: Leukocytosis type: unspecified Qualified Code(s): D72.829 - Elevated white blood cell count, unspecified
--- NOTE | 2018-06-12 17:30 | Anesthesia Evaluation PreOp ---
Date of Encounter: 06/12/18 Time of Encounter: 19:02 - Past History Planned Operation: ORIF Right Femur Cardiac History: Hyperlipidemia, Other (H/O DVT--on plavix, last doae taken 06/10/2018) Pulmonary History: Former smoker (quit 1 year ago, smoked for 40 years) [facility] History: CVA (CVA x 2, denies residual deficit) Other Medical History: Diabetes Type II, GERD, Other (obesity BMI=54) Anesthesia History: No Prior Anesthetic Complications, Past Anesthesia Alcohol Use: rarely Drug use: none Medications and Allergies Aspirin [Ecotrin] 325 mg PO DAILY 09/20/17 [History] Atorvastatin [Lipitor] 40 mg PO HS 09/20/17 [History] Clopidogrel [Plavix] 75 mg PO DAILY 09/20/17 [History] Insulin NPH Hum/Reg Insulin Hm [Novolin 70-30 100 Unit/ml Vial] 50 unit SQ BID 06/12/18 [History] metFORMIN [Glucophage] 1,000 mg PO BID 06/12/18 [History] Allergy/AdvReac Type Severity Reaction Status Date / Time No Known Allergies Allergy Verified 06/17/15 20:42 - Meds/Allergy Pre-op Review Medications Reviewed: Yes Allergies Reviewed: Yes Beta Blockers on Current Med List: No Anesthesia Results - Labs 06/12/18 03:32 06/12/18 03:32 - Imaging EKG: report reviewed (06/11/2018 Sinus rhythm Nonspecific T wave changes) Anesthesia Exam Vital Signs/O2 Sat/Glucose, Most Recent Temp Pulse Resp BP Pulse Ox 99.7 F H 85 17 159/74 93 06/12/18 15:48 06/12/18 15:48 06/12/18 15:48 06/12/18 15:48 06/12/18 15:48 Blood Glucose* 213 Height: 5'4''/1.63m Weight: 314 lbs Pain Scale: 6 (right leg) Pain Scale Used: Numeric (1 - 10) - HEENT Pupil (Motor): EOMI Mallampati: II Teeth: Edentulous Oral Opening: Greater than 3 - [facility] LOC: Oriented [facility] Motor: Normal RUE, Normal LUE, Normal LLE, Normal Face, Deficit RLE [facility] Sensory: Normal: RUE, LUE, Face, Deficit: RLE, LLE - Cardiac Rhythm: Regular Murmur: None - Pulmonary Breath Sounds: bilateral Clear Respiratory Effort: Symmetrical Anesthesia Assess/Plan ASA Score: 3 Level of consciousness: Cooperative, Oriented, Tranquil Anesthetic Plan: General Monitoring Plan: Standard Monitors Recovery Plan: PACU
[2018-06-12] MEDS ORDERED: Insulin DETEMIR 100 UNIT/ML X5UNITS SQ SCH (21:00)
[2018-06-13] MEDS: *HR* HYDROcodone/Acet 5/325 mg TABLET PO PRN ×4 (02:39→22:52)
[2018-06-13] MEDS: *HR* Heparin 5,000 UNIT/ML VIAL SQ SCH ×3 (05:07→22:53)
--- NOTE | 2018-06-13 06:27 | Orthopedics Progress Note ---
Date of Encounter: 06/13/18 Time of Encounter: 06:26 Subjective Interval history: Patient seen this morning, surgical plan for open reduction internal fixation all questions answered. Patient surgery this morning Objective Vital signs: Vital Signs Temp Pulse Resp BP Pulse Ox 06/13/18 06:16 99.4 F 88 18 118/50 94 06/13/18 03:55 99.6 F 87 17 104/61 86 06/13/18 00:13 99.8 F H 06/12/18 23:48 101.3 F H 88 18 113/51 88 06/12/18 20:58 98.9 F 75 18 110/60 94 06/12/18 20:50 94 06/12/18 18:40 100.0 F H 74 18 100/41 89 06/12/18 15:48 99.7 F H 85 17 159/74 93 06/12/18 15:00 86 135/73 06/12/18 11:51 99.3 F 75 15 91/52 93 06/12/18 09:06 87 129/77 06/12/18 06:40 99 F 70 15 106/47 92 Intake and Output 06/12/18 06/12/18 06/13/18 15:59 23:59 07:59 Intake Total 2020 / 2380 360 / 2380 Output Total 1600 / 4200 1400 / 4200 450 / 450 Balance 420 / -1820 -1040 / -1820 -450 / -450 Intake: Oral 2020 / 2380 360 / 2380 Output: Catheter 1600 / 4200 1400 / 4200 450 / 450 Other: Meal Lunch Dinner Percent of Meal Consumed 50% 50% Weight 119.1 kg Blood Glucose* 191 191 214 Patient Weight 06/13/18 23:59 Weight 119.1 kg - Labs CBC & BMP: 06/12/18 03:32 06/12/18 03:32 Labs: Abnormal lab results WBC 12.4 K/mcL (4.3-11.1) H 06/11/18 13:03 RBC 3.72 M/mcL (3.82-4.97) L 06/12/18 03:32 Hgb 11.3 g/dL (11.5-15.4) L 06/12/18 03:32 MCHC 31.5 g/dL (31.6-35.5) L 06/11/18 13:03 MPV 9.1 fL (9.4-12.4) L 06/11/18 13:03 9.8 K/mcL (1.6-8.9) H 06/11/18 13:03 Est GFR (Non-Af Amer) 54 (> 60) L 06/12/18 03:32 Glucose 122 mg/dL (70-105) H 06/12/18 03:32 POC Glucose 196 mg/dL (70-99) H 06/12/18 19:24 7.9 % (-5.6) H 06/11/18 13:03 Consult Discharge Plan - Plan Referrals: Tani Mcclure DO [Primary Care Provider] -
[2018-06-13] MEDS ORDERED: Dexamethasone 4 MG/ML VIAL ONE (07:12)
[2018-06-13] MEDS ORDERED: *HR* Succinylcholine 200 MG/10 ML VIAL IVP ONE (07:12)
[2018-06-13] MEDS ORDERED: Ondansetron 4 MG/2 ML VIAL ONE (07:12)
[2018-06-13] MEDS ORDERED: Lidocaine -MPF 2% 2 ML VIAL ONE (07:12)
[2018-06-13] MEDS ORDERED: *HR* FentaNYL (PF) 100 MCG/2 ML VIAL ONE (07:14)
[2018-06-13] MEDS ORDERED: *HR* Propofol 200 MG/20 ML VIAL IVP ONE (07:14)
[2018-06-13] MEDS ORDERED: *HR* Promethazine 25 MG/ML VIAL IVP PRN ×2 (07:23→10:21)
[2018-06-13] MEDS ORDERED: *HR* HYDROmorphone (PF) 1 MG/ML SYRINGE IVP PRN ×2 (07:23→10:21)
[2018-06-13] MEDS ORDERED: *HR* Labetalol 20 MG/4 ML SYRINGE IVP PRN ×2 (07:23→10:21)
[2018-06-13] MEDS ORDERED: *HR* OxyCODONE Immed Rel 5 MG TABLET PO PRN ×2 (07:23→10:21)
[2018-06-13] MEDS ORDERED: Ondansetron 4 MG/2 ML VIAL IVP ONE ×2 (07:23→10:21)
[2018-06-13] MEDS ORDERED: Ethanol\\Acetic Acid\\Na Ace\\Ben 1,000 ML IRRIG.SOLN IR ONE (07:35)
[2018-06-13] MEDS ORDERED: CeFAZolin Syr 3,000MG/30 ML 3,000 MG/30 ML SYRINGE IVPB ONE (07:44)
[2018-06-13] MEDS ORDERED: *HR* PHENYLEPHRINE 1,000 MCG/10 ML SYRINGE IVP ONE (08:05)
[2018-06-13] MEDS ORDERED: *HR* HYDROMORPHONE 2 MG/ML VIAL ONE (08:22)
--- NOTE | 2018-06-13 08:46 | Orthopedic Operative Note ---
Date of procedure: 06/13/18 Pre-op diagnosis: Displaced right distal femur fracture Post-op diagnosis: same Procedure: open reduction internal fixation right femur fracture Estimated blood loss: 200 cc Hardware: Clem 4-hole right periarticular distal femoral plate 11 screws and 2 compression nonlocking Operative procedure: The patient was brought to the operating room and placed on the operating room fracture table. The well leg was placed in the well leg brewster, the fracture leg was placed in the fracture leg brewster. After general anesthesia was administered the operative leg was prepped and draped in the sterile surgical fashion The patient received IV antibiotics prior to skin incision. A standard lateral approach was made to the femur the incision is made to the skin and subcutaneous tissue. Hemostasis was obtained with Bovie cautery. Using careful blunt dissection the tensor fascia was identified and incised along the length of the incision. The vastus lateralis was elevated up after the fascia was split closing the lateral femur and the fracture site. The fractures reduced and held in place with bone holding forceps a 4-hole right periarticular distal locking plate was approximated to the lateral surface was fixed with a combination locking and compression screws. Position of hardware as well as fracture reduction was found to be acceptable with fluoroscopic assistance. The wound was irrigated the fracture site was packed with DBX bone stimulator protein. The PA close the incision. the fascia was closed with a running #1 PDS suture tensa fascia was closed with a running #2 PDS suture subcutaneous tissues and closed deep #1 PDS suture superficially with 0 PDS suture and skin was closed with Dermabond and skin tania. The patient was placed in a sterile dressing, and knee immobilizer The patient was extubated, and then transferred to the recovery room in stable condition. Anesthesia: GETA Surgeon: Emmanuel Watt Was there an ssn/ssbn assistant navigator present: No Estimated blood loss (cc): 200 Condition: stable Disposition: PACU
[2018-06-13] MEDS ORDERED: Ketorolac 30 MG/ML VIAL ONE (08:54)
--- NOTE | 2018-06-13 10:16 | Anesthesia Evaluation Post Op ---
Date of Encounter: 06/13/18 Time of Encounter: 10:15 - Vital Signs Vital Signs: Vital Signs/O2 Sat, Most Current Temp Pulse Resp BP Pulse Ox 97.5 F L 68 16 146/66 97 06/13/18 10:07 06/13/18 10:07 06/13/18 10:07 06/13/18 10:06/13/18 10:07 - Lungs Lungs: Clear Ascult./Percussion - Airway Airway: Non-obstructed - Cardiovascular Regular Rate - Mental Status Mental Status: Alert & Oriented, Answers Appropriately - Pain Pain Scale: 3 Pain Scale used: Numeric (1 - 10) - Nausea Vomiting Nausea Vomiting: Not Present - Hydration Hydration: Ice chips, Farfan catheter - Discharge PostOp Status: Transfer Patient to floor
[2018-06-13] MEDS ORDERED: Sennosides/Docusate Sodium TABLET PO PRN (10:21)
[2018-06-13] MEDS ORDERED: *HR* Dextrose 50 % in Water (Syg) 50 ML SYRINGE IVP PRN (10:21)
[2018-06-13] MEDS ORDERED: Dextrose Gel 15 GM/37.5 ML TUBE PO PRN ×2 (10:21)
[2018-06-13] MEDS ORDERED: Naloxone 0.4 MG/ML INJ IVP PRN (10:21)
[2018-06-13] MEDS ORDERED: D5% in Water 1,000 ML IVC PRN (10:21)
[2018-06-13 10:30] LABS: Hematocrit 32.3 % (35.3-44.9); Hemoglobin 10.6 g/dL (11.5-15.4)
[2018-06-13 10:31] LABS: Basophils # 0.1 K/mcL (0.0-0.2); Basophils % 0.6 %; Eosinophils # 0.2 K/mcL (0.0-0.6); Eosinophils % 1.3 %; Hematocrit 32.2 % (35.3-44.9); Hemoglobin 10.4 g/dL (11.5-15.4); Immature Granulocytes % 1.5 % (0-4); Lymphocytes # 1.1 K/mcL (0.6-4.6); Lymphocytes % 7.6 %; Mean Corpuscular HGB Conc 32.3 g/dL (31.6-35.5); Mean Corpuscular Hemoglobin 31.1 pg (28.0-33.3); Mean Corpuscular Volume 96.4 fL (83.0-100.0); Mean Platelet Volume 9.5 fL (9.4-12.4); Monocytes # 0.6 K/mcL (0.0-1.3); Monocytes % 3.9 %; Neutrophils # 12.2 K/mcL (1.6-8.9); Platelet Count 195 K/mcL (140-400); Red Blood Count 3.34 M/mcL (3.82-4.97); Red Cell Distribution Width 14.4 % (11.5-14.5); Segmented Neutrophils % 85.1 %
[2018-06-13] MEDS: Insulin LISPRO 300 UNITS/3 ML VIAL SQ SCH ×3 (11:53→22:53)
--- NOTE | 2018-06-13 14:56 | Internal Med Progress Note ---
Hospitalist Progress Note - Encounter Date of Encounter: 06/13/18 Time of Encounter: 14:52 - Subjective Interval History: I have seen and evaluated the patient at bedside after surgery. report her pain has improve significantly. denies chest pain, shortness of breath or loose stool. denies urinary symptoms. - Exam Vitals: Temp Pulse Resp BP Pulse Ox 98.2 F 64 20 110/53 99 06/13/18 14:11 06/13/18 14:11 06/13/18 14:11 06/13/18 14:11 06/13/18 14:11 Exam: Vitals: Reviewed. General: Alert and oriented x4. In no distress Cardiovascular: RRR, normal S1 & S2, no rubs, murmurs or gallops. Lungs: CTA b/l, no wheezes or crackles. Abdomen: Obese, Soft, non-tender, no rigidity. Extremities: No edema. Neurological: Normal cognition Rest of the physical exam is non contributory - Assessment and Plan (1) Femoral fracture Current Visit: Yes Status: Acute Assessment and Plan: s/p open reduction internal fixation right femur fracture. Plan pain control with oxycodone 5mg/PO Q6HR PRN for severy pain, and [place] 5/325mg/PO 1tab Q6HR PRN for moderate pain started on cefazolin 3gm/IV Q8HRs per ortho recommendations continue senna plus PT/OT ordered (2) Phalanx fracture, foot Current Visit: Yes Status: Acute Assessment and Plan: podiatry consulted, recommended conservative management. (3) HLD (hyperlipidemia) Current Visit: Yes Status: Chronic Assessment and Plan: Continue atorvastatin 40mg/PO daily (4) Diabetes Current Visit: Yes Status: Chronic Assessment and Plan: Blood sugar suboptimally controlled. Increase Levemir to 10 units twice a day. continue lispro low dose sliding scale ac. carbs controlled diet. (5) History of CVA (cerebrovascular accident) Current Visit: Yes Status: Chronic Assessment and Plan: continue to hold aspirin. will discuss with ortho about re-starting medication (6) Morbid obesity with BMI of 50.0-59.9, adult Current Visit: Yes Status: Chronic (7) Leukocytosis Current Visit: Yes Status: Acute Assessment and Plan: most likely reactive due to pain. patient spike a low grade fever last night. if patient spikes a fever again consider alanis culture. on cefazolin post op per ortho recommendations chest x-ray and UA ordered. DVT Prophylaxis: on heparin subq. - Summary of Assessment and Plan Summary of Assessment and Plan: patient to remain in the hospital s/p open reduction internal fixation right femur fracture. social media marketing manager working on placement. - Time Spent with Patient Total time spent is greater than 50% in coordination of care (as documented) at patient's floor/unit and/or counseling patient: Greater than 35 minutes (40) Plan of Care Discussed with: patient (and the nurse.) Internal Medicine: Result - Labs CBC & Chem 7: 06/13/18 10:08 06/12/18 03:32 Labs: Short CBC 06/13/18 06/13/18 Range/Units 10:08 10:08 WBC 14.3 H (4.3-11.1) K/mcL Hgb 10.4 L 10.6 L (11.5-15.4) g/dL Hct 32.2 L 32.3 L (35.3-44.9) % Plt Count 195 (140-400) K/mcL Neutrophils # 12.2 H (1.6-8.9) K/mcL - ABG Interpretation ABG results: PT/INR, D-dimer PT 11.9 Seconds (9.4-12.1) 06/11/18 13:03 - Impressions Impressions Femur X-Ray 06/13/18 00:00 IMPRESSION: Fluoroscopy was utilized for the purposes of ORIF of the distal right femur. D/ / 06/13/2018 09:39:08 Nigel Meneses MD / marcus Interpreting Provider: Nigel Meneses MD Femur X-Ray 06/13/18 00:00 IMPRESSION: Good results with expected postsurgical appearance of distal femur fracture ORIF. Anatomic alignment. D/ / Perry Villagran MD / Perry Villagran MD Interpreting Provider: Perry Villagran MD Fluoroscopy 06/13/18 00:00 IMPRESSION: Fluoroscopy was utilized for the purposes of ORIF of the distal right femur. D/ / 06/13/2018 09:39:08 Nigel Meneses MD / marcus Interpreting Provider: Nigel Meneses MD Chest X-Ray 06/13/18 07:34 IMPRESSION: 1. No acute cardiopulmonary disease. D/ / Sy Washington MD / Sy Washington MD Interpreting Provider: Sy Washington MD Femur X-Ray 06/13/18 07:53 IMPRESSION: Fluoroscopy was utilized for the purposes of ORIF of the distal right femur. D/ / 06/13/2018 09:39:08 Nigel Meneses MD / marcus Interpreting Provider: Nigel Meneses MD Consult Discharge Plan - Plan Referrals: Tani Mcclure DO [Primary Care Provider] - ___ (1) Femoral fracture Qualifiers: Encounter type: initial encounter Femur location: distal physis (incl. Salter-Bermudez) Salter-Bermudez Fracture Type: unspecified configuration Laterality: right Qualified Code(s): S79.101A - Unspecified physeal fracture of lower end of right femur, initial encounter for closed fracture (2) Phalanx fracture, foot Qualifiers: Encounter type: initial encounter Toe: great toe Fracture type: closed Phalanx: unspecified phalanx Fracture alignment: nondisplaced Laterality: left Qualified Code(s): S92.405A - Nondisplaced unspecified fracture of left great toe, initial encounter for closed fracture (3) HLD (hyperlipidemia) Qualifiers: Hyperlipidemia type: unspecified Qualified Code(s): E78.5 - Hyperlipidemia, unspecified (4) Diabetes Qualifiers: Diabetes mellitus type: type 2 Diabetes mellitus complication status: with unspecified complications Qualified Code(s): E11.8 - Type 2 diabetes mellitus with unspecified complications (7) Leukocytosis Qualifiers: Leukocytosis type: unspecified Qualified Code(s): D72.829 - Elevated white blood cell count, unspecified
[2018-06-13] MEDS: ceFAZolin 3,000 MG in 0.9 % Sodium Chloride 100 ML IVPB SCH (16:53)
[2018-06-13] MEDS ORDERED: Insulin DETEMIR 100 UNIT/ML X5UNITS SQ SCH (21:00)
[2018-06-13] MEDS: Insulin DETEMIR 100 UNIT/ML X5UNITS SQ SCH (22:52)
[2018-06-14] MEDS: ceFAZolin 3,000 MG in 0.9 % Sodium Chloride 100 ML IVPB SCH (00:45)
[2018-06-14] MEDS: *HR* Heparin 5,000 UNIT/ML VIAL SQ SCH ×3 (05:01→21:54)
[2018-06-14] MEDS: OXYCODONE Oral CONC 10 MG/0.5 ML ORAL.SYG SL PRN ×2 (05:01→19:44)
--- NOTE | 2018-06-14 06:23 | Orthopedics Progress Note ---
Date of Encounter: 06/14/18 Time of Encounter: 06:23 Subjective Interval history: Patient was seen this morning doing well without complaints. Afebrile vital signs stable. Operative extremity: Neurovascularly intact Dressing clean dry and intact Calves nontender Assessment and plan: Continue with postoperative care Nonweightbearing right lower extremity no knee motion Objective Vital signs: Vital Signs Temp Pulse Resp BP Pulse Ox 06/14/18 05:02 98.0 F 70 17 149/67 96 06/13/18 22:29 98.6 F 65 18 155/66 93 06/13/18 18:56 98.7 F 72 16 115/66 92 06/13/18 14:11 98.2 F 64 20 110/53 99 06/13/18 13:31 98.4 F 60 16 91/62 95 06/13/18 12:44 98.6 F 72 15 123/75 95 06/13/18 11:47 98.1 F 73 16 131/75 96 06/13/18 11:03 99.3 F 73 16 109/45 90 06/13/18 10:31 99.0 F 68 18 120/72 97 06/13/18 10:17 97.5 F L 71 16 119/91 98 06/13/18 10:07 97.5 F L 68 16 146/66 97 06/13/18 09:57 71 16 133/47 96 06/13/18 09:47 97.8 F 71 16 128/51 98 06/13/18 09:37 72 16 119/48 98 06/13/18 09:27 97.6 F 82 16 133/50 97 Intake and Output 06/13/18 06/13/18 06/14/18 15:59 23:59 07:59 Intake Total 700 / 700 Output Total 300 / 3400 2650 / 3400 800 / 800 Balance -300 / -2700 -1950 / -2700 -800 / -800 Intake: IV Fluids 100 / 100 Ancef 3,000 MG In 0.9 % Sodium 100 / 100 Chloride 100 ML @ 200 mls/hr IVPB Q8HR YAMILKA Rx#:[id number] Oral 600 / 600 Output: Estimated Blood Loss 200 / 200 Catheter 100 / 3200 2650 / 3200 800 / 800 Other: Meal Dinner Percent of Meal Consumed 0% Blood Glucose* 318 301 - Labs CBC & BMP: 06/13/18 10:08 06/12/18 03:32 Labs: Abnormal lab results WBC 14.3 K/mcL (4.3-11.1) H 06/13/18 10:08 RBC 3.34 M/mcL (3.82-4.97) L 06/13/18 10:08 Hgb 10.4 g/dL (11.5-15.4) L 06/13/18 10:08 Hgb 10.6 g/dL (11.5-15.4) L 06/13/18 10:08 Hct 32.2 % (35.3-44.9) L 06/13/18 10:08 Hct 32.3 % (35.3-44.9) L 06/13/18 10:08 MCHC 31.5 g/dL (31.6-35.5) L 06/11/18 13:03 MPV 9.1 fL (9.4-12.4) L 06/11/18 13:03 12.2 K/mcL (1.6-8.9) H 06/13/18 10:08 Est GFR (Non-Af Amer) 54 (> 60) L 06/12/18 03:32 Glucose 122 mg/dL (70-105) H 06/12/18 03:32 POC Glucose 214 mg/dL (70-99) H 06/13/18 06:18 7.9 % (-5.6) H 06/11/18 13:03 Consult Discharge Plan - Plan Referrals: Tani Mcclure DO [Primary Care Provider] -
--- NOTE | 2018-06-14 07:42 | Internal Med Progress Note ---
Hospitalist Progress Note - Encounter Date of Encounter: 06/14/18 Time of Encounter: 07:37 - Subjective Interval History: Patient is doing well, afebrile, postoperative day one complaining of pain 4 out of 10 constant. Denies chest pain shortness of breath, patient reported she was taking insulin 70/30, 50 units twice a day at home, metformin 1gm bid at home. She denies productive cough loss sounds are clear. Denies painful frequency urination no tenderness to the suprapelvic regimen - Exam Vitals: Temp Pulse Resp BP Pulse Ox 97.8 F 58 17 124/62 93 06/14/18 06:42 06/14/18 06:42 06/14/18 06:42 06/14/18 06:42 06/14/18 06:42 Exam: CONSTITUTIONAL: patient appears as an age appropriate female in no acute distress. EYES Clear sclerae, bilateral pupils are equal, reactive to light. EMOI. RESPIRATORY: No accessory muscle use, bilateral clear to auscultation, no wheezing, no crackles/rales. CARDIOVASCULAR: Regular heart rate, normal S1 and S2, no murmurs GASTROINTESTINAL: bowel sounds present, soft, no tenderness. MUSCULOSKELETAL: Joints in normal range of motion, no clubbing, no edema, no cyanosis. Bilateral peripheral pulses 2+. NEUROLOGIC: CN II to XII are grossly intact, no focal neurological deficit.. DVT Prophylaxis: on heparin subq. - Summary of Assessment and Plan Summary of Assessment and Plan: (1) Femoral fracture s/p ORIF on 06/13 Current Visit: Yes Status: Acute Assessment and Plan: s/p open reduction internal fixation right femur fracture. Plan pain control with oxycodone 5mg/PO Q6HR PRN for severy pain, and [place] 5/325mg/PO 1tab Q6HR PRN for moderate pain started on cefazolin 3gm/IV Q8HRs per ortho recommendations continue senna plus PT/OT ordered (2) Phalanx fracture, foot Current Visit: Yes Status: Acute Assessment and Plan: podiatry consulted, recommended conservative management. (3) HLD (hyperlipidemia) Current Visit: Yes Status: Chronic Assessment and Plan: Continue atorvastatin 40mg/PO daily (4) Diabetes Current Visit: Yes Status: Chronic Assessment and Plan: A1C 7.9%, patient was on 70/30 50 units twice a day and the metformin twice a day at home, Increase Levemir to 30 units twice a day. continue lispro low dose sliding scale ac. carbs controlled diet. resume metformin (5) History of CVA (cerebrovascular accident) Current Visit: Yes Status: Chronic Assessment and Plan: continue to hold aspirin. I discussed with Dr Watt, he is ok to resume palvix and ASA (6) Morbid obesity with BMI of 50.0-59.9, adult Current Visit: Yes Status: Chronic (7) Leukocytosis Current Visit: Yes Status: Acute Assessment and Plan: most likely reactive due to pain. patient spike a low grade fever last night. if patient spikes a fever again consider alanis culture. on cefazolin post op per ortho recommendations chest x-ray was negative, no UA was done, will order UA again. DVT Prophylaxis: on heparin subq. DIsposition: pending PT and OT - Time Spent with Patient Total time spent is greater than 50% in coordination of care (as documented) at patient's floor/unit and/or counseling patient: 25 - 35 minutes Plan of Care Discussed with: patient Internal Medicine: Result - Labs CBC & Chem 7: 06/13/18 10:08 06/12/18 03:32 Labs: Short CBC 06/13/18 06/13/18 Range/Units 10:08 10:08 WBC 14.3 H (4.3-11.1) K/mcL Hgb 10.4 L 10.6 L (11.5-15.4) g/dL Hct 32.2 L 32.3 L (35.3-44.9) % Plt Count 195 (140-400) K/mcL Neutrophils # 12.2 H (1.6-8.9) K/mcL - ABG Interpretation ABG results: PT/INR, D-dimer PT 11.9 Seconds (9.4-12.1) 06/11/18 13:03 - Impressions Impressions Femur X-Ray 06/13/18 00:00 IMPRESSION: Fluoroscopy was utilized for the purposes of ORIF of the distal right femur. D/ / 06/13/2018 09:39:08 Nigel Meneses MD / marcus Interpreting Provider: Nigel Meneses MD Femur X-Ray 06/13/18 00:00 IMPRESSION: Good results with expected postsurgical appearance of distal femur fracture ORIF. Anatomic alignment. D/ / Perry Villagran MD / Perry Villagran MD Interpreting Provider: Perry Villagran MD Fluoroscopy 06/13/18 00:00 IMPRESSION: Fluoroscopy was utilized for the purposes of ORIF of the distal right femur. D/ / 06/13/2018 09:39:08 Nigel Meneses MD / marcus Interpreting Provider: Nigel Meneses MD Chest X-Ray 06/13/18 07:34 IMPRESSION: 1. No acute cardiopulmonary disease. D/ / yS Washington MD / Sy Washington MD Interpreting Provider: Sy Washington MD Consult Discharge Plan - Plan Referrals: Tani Mcclure DO [Primary Care Provider] -
[2018-06-14] MEDS: Insulin LISPRO 300 UNITS/3 ML VIAL SQ SCH ×4 (07:51→21:55)
[2018-06-14] MEDS: Insulin DETEMIR 100 UNIT/ML X5UNITS SQ SCH ×3 (07:56→21:54)
[2018-06-14] MEDS ORDERED: Insulin DETEMIR 100 UNIT/ML X5UNITS SQ ONE (08:39)
[2018-06-14] MEDS: *HR* Metformin 500 MG TABLET PO SCH ×2 (08:40→21:54)
[2018-06-14] MEDS: Aspirin Enteric Coated 325 MG Tablet PO SCH (08:40)
--- NOTE | 2018-06-14 09:39 | Electrocardiograph Report ---
[address] [place] [address] Test Date: 2018-06-12 Pat Name: Marlyn Altamirano Department: 114 Room: [facility] Gender: F Bias Cutter: : 1955 Requested By: Ford Camacho Order Number: [id number] Reading MD: Paul Adkins Measurements Intervals Buckley Rate: 73 P: 45 AK: 144 QRS: 19 QRSD: 93 T: 51 QT: 367 QTc: 392 Interpretive Statements SINUS RHYTHM PROBABLE INFERIOR MYOCARDIAL INFARCTION, PROBABLY OLD Electronically Signed On 06-14-2018 9:38:02 EDT by Paul Adkins
[2018-06-14 10:23] LABS: BUN/Creatinine Ratio 15 (6-26); Blood Urea Nitrogen 15 mg/dL (8-23); Calcium 8.9 mg/dL (8.6-10.3); Carbon Dioxide 27 mEq/L (23-29); Chloride 100 mEq/L (98-107); Glucose 277 mg/dL (70-105); Magnesium 2.2 mg/dL (1.6-2.6); Osmolality,Calculated 293 (280-300); Phosphorous 2.5 mg/dL (2.7-4.5); Potassium 4.2 mEq/L (3.5-5.1); Sodium 136 mEq/L (136-145); eGFR For Non-African Americans 54 (> 60)
[2018-06-14] MEDS: *HR* HYDROcodone/Acet 5/325 mg TABLET PO PRN ×2 (10:25→16:40)
[2018-06-14 10:38] LABS: Basophils % 0.3 %; Eosinophils % 0.3 %; Hematocrit 27.9 % (35.3-44.9); Hemoglobin 9.2 g/dL (11.5-15.4); Immature Granulocytes % 0.8 % (0-4); Lymphocytes # 1.8 K/mcL (0.6-4.6); Lymphocytes % 12.5 %; Mean Corpuscular Hemoglobin 31.4 pg (28.0-33.3); Mean Corpuscular Volume 95.2 fL (83.0-100.0); Mean Platelet Volume 9.8 fL (9.4-12.4); Monocytes % 6.6 %; Neutrophils # 11.7 K/mcL (1.6-8.9); Platelet Count 212 K/mcL (140-400); Red Blood Count 2.93 M/mcL (3.82-4.97); Red Cell Distribution Width 14.1 % (11.5-14.5); Segmented Neutrophils % 79.5 %
[2018-06-14 13:48] LABS: Bilirubin,Urine Negative (Negative); Blood,Urine Negative (Negative); Clarity,Urine Clear (Clear); Color,Urine Yellow (Yellow); Glucose,Urine (UA) Normal (Normal); Ketones,Urine Negative (Negative); Leukocyte Esterase,Urine Trace (Negative); Nitrite,Urine Negative (Negative); PH,Urine 6.5 pH Units (5.0-8.0); Protein,Urine Negative (Neg-Trace); Specific Gravity,Urine 1.011 (1.010-1.025); Urobilinogen,Urine Normal (Normal)
[2018-06-14 13:50] LABS: Bacteria,Urine None Seen per hpf (None-Few); Hyaline Casts,Urine None Seen per lpf (None-Few); Squamous Epithelial Cell,Urine Many per lpf (None-Few); WBC,Urine 0-3 per hpf (0-3)
--- NOTE | 2018-06-14 16:51 | Event Note ---
Date of Encounter: 06/14/18 Time of Encounter: 09:10 Date of procedure: 06/13/18 Pre-op diagnosis: Displaced right distal femur fracture Post-op diagnosis: same Procedure: Open reduction internal fixation right femur fracture POD#1 Patient seen at bedside. A&Ox3 ALEXA wrap Dressing c/d/i No calf tenderness, erythema, or warmth. TROM brace in place in locked extension Neurovascularly intact b/l LE. Labwork, vitals, and medications reviewed. Pain control: Adequate Participating in PT. All questions and concerns addressed. Educated on use of incentive spirometer, ambulation with nonweightbearing to the operative extremity, and hydration. Patient educated on post-operative restrictions and care. Addressed: NONweightbearing to RLE NO knee motion to right knee Remain in brace with wheels to either side of knee - remove for hygiene purposes only Leave dressing in place - change if greater than 50% saturated Bone stimulator 3 hours daily at same time each day Ice as needed for pain/swelling no more than 20-30 minutes each hour D/C plan: awaiting PT/OT roberto
[2018-06-15] MEDS: *HR* HYDROcodone/Acet 5/325 mg TABLET PO PRN ×2 (00:37→09:06)
[2018-06-15] MEDS: *HR* Heparin 5,000 UNIT/ML VIAL SQ SCH ×2 (05:10→14:19)
[2018-06-15] MEDS: OXYCODONE Oral CONC 10 MG/0.5 ML ORAL.SYG SL PRN ×2 (05:10→12:18)
[2018-06-15 05:47] LABS: Basophils # 0.1 K/mcL (0.0-0.2); Basophils % 0.5 %; Eosinophils # 0.3 K/mcL (0.0-0.6); Eosinophils % 2.6 %; Hematocrit 26.5 % (35.3-44.9); Hemoglobin 8.4 g/dL (11.5-15.4); Immature Granulocytes % 0.8 % (0-4); Lymphocytes # 3.3 K/mcL (0.6-4.6); Lymphocytes % 28.8 %; Mean Corpuscular HGB Conc 31.7 g/dL (31.6-35.5); Mean Corpuscular Hemoglobin 30.7 pg (28.0-33.3); Mean Corpuscular Volume 96.7 fL (83.0-100.0); Mean Platelet Volume 9.8 fL (9.4-12.4); Monocytes # 0.9 K/mcL (0.0-1.3); Monocytes % 7.5 %; Neutrophils # 6.8 K/mcL (1.6-8.9); Nucleated Red Blood Cells 0.2 /100 WBC (0); Platelet Count 219 K/mcL (140-400); Red Blood Count 2.74 M/mcL (3.82-4.97); Red Cell Distribution Width 14.6 % (11.5-14.5); Segmented Neutrophils % 59.8 %
[2018-06-15 06:13] LABS: BUN/Creatinine Ratio 18 (6-26); Blood Urea Nitrogen 18 mg/dL (8-23); Calcium 8.7 mg/dL (8.6-10.3); Carbon Dioxide 24 mEq/L (23-29); Chloride 104 mEq/L (98-107); Glucose 116 mg/dL (70-105); Osmolality,Calculated 291 (280-300); Potassium 3.9 mEq/L (3.5-5.1); Sodium 139 mEq/L (136-145); eGFR For Non-African Americans 58 (> 60)
--- NOTE | 2018-06-15 06:32 | Orthopedics Progress Note ---
Date of Encounter: 06/15/18 Time of Encounter: 06:31 Subjective Interval history: Patient was seen this morning doing well without complaints. Afebrile vital signs stable. Operative extremity: Neurovascularly intact Dressing clean dry and intact Calves nontender Assessment and plan: Continue with postoperative care Nonweightbearing right lower extremity no knee motion hb 8.6 Objective Vital signs: Vital Signs Temp Pulse Resp BP Pulse Ox 06/14/18 23:30 98.6 F 73 16 110/72 95 06/14/18 19:13 98.5 F 78 17 106/60 94 06/14/18 16:18 99.1 F 79 18 165/62 92 06/14/18 10:28 98.8 F 79 17 128/61 94 06/14/18 06:42 97.8 F 58 17 124/62 93 Intake and Output 06/14/18 06/14/18 06/15/18 15:59 23:59 07:59 Intake Total 480 / 480 Balance 480 / -320 Intake: Oral 480 / 480 Other: Meal Dinner Percent of Meal Consumed 50% # Voids 1 Blood Glucose* 264 235 - Labs CBC & BMP: 06/15/18 04:39 06/15/18 04:39 Labs: Abnormal lab results WBC 11.4 K/mcL (4.3-11.1) H 06/15/18 04:39 RBC 2.74 M/mcL (3.82-4.97) L 06/15/18 04:39 Hgb 8.4 g/dL (11.5-15.4) L 06/15/18 04:39 Hct 26.5 % (35.3-44.9) L 06/15/18 04:39 MCHC 31.5 g/dL (31.6-35.5) L 06/11/18 13:03 RDW 14.6 % (11.5-14.5) H 06/15/18 04:39 MPV 9.1 fL (9.4-12.4) L 06/11/18 13:03 11.7 K/mcL (1.6-8.9) H 06/14/18 09:13 Nucleated RBCs/100 WBC 0.2 /100 WBC (0) H 06/15/18 04:39 Est GFR (Non-Af Amer) 58 (> 60) L 06/15/18 04:39 Glucose 116 mg/dL (70-105) H 06/15/18 04:39 POC Glucose 235 mg/dL (70-99) H 06/14/18 20:39 7.9 % (-5.6) H 06/11/18 13:03 Phosphorus 2.5 mg/dL (2.7-4.5) L 06/14/18 09:13 Ur Leukocyte Esterase Trace (Negative) H 06/14/18 13:35 3-5 per hpf (0-3) H 06/14/18 13:35 Ur Squamous Epith Cells Many per lpf (None-Few) H 06/14/18 13:35 Ur Culture Indicated? YES (NO) A 06/14/18 13:35 Consult Discharge Plan - Plan Referrals: Tani Mcclure DO [Primary Care Provider] -
[2018-06-15] MEDS: Insulin LISPRO 300 UNITS/3 ML VIAL SQ SCH ×2 (08:49→12:12)
[2018-06-15] MEDS: *HR* Metformin 500 MG TABLET PO SCH (08:59)
[2018-06-15] MEDS: Aspirin Enteric Coated 325 MG Tablet PO SCH (09:00)
[2018-06-15] MEDS: Insulin DETEMIR 100 UNIT/ML X5UNITS SQ SCH (10:45)
--- NOTE | 2018-06-15 12:46 | Discharge Summary ---
Orders not resulted at time of discharge: Pending orders 06/14/18 13:35 Culture,Urine [RM] Stat Date of Encounter: 06/15/18 Time of Encounter: 12:42 Hospital course: Ms. 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 Patient presented to the ED following a fall. Patient reports that today while she was walking on her way out of a store she fell to the ground and started having right lower extremity pain. She denies light headedness, palp itation or seizures like activities before falling. denies loosing consciousness, or hitting her head. she reports that she just fell. Reported she had a similar fall last year and she broke her right patellar bone. she denies chest pain, shortness of breath, nausea or vomiting. denies fever or chills. In the ED patient found to have Comminuted fracture of the distal femur. 1. Acute nondisplaced, potentially intra-articular fracture involving the medial base left 1st proximal phalanx. Hospitalist called to coordinate patient's car (1) Femoral fracture s/p ORIF on 06/13 Current Visit: Yes Status: Acute Assessment and Plan: s/p open reduction internal fixation right femur fracture on 06/13, ortho is ok to discharge PNorco 5/325mg/PO 1tab Q6HR PRN for moderate pain (2) Phalanx fracture, foot Current Visit: Yes Status: Acute Assessment and Plan: podiatry consulted, recommended conservative management. (3) HLD (hyperlipidemia) Current Visit: Yes Status: Chronic Assessment and Plan: Continue atorvastatin 40mg/PO daily (4) Diabetes Type 2, HB has been runing 100s, she did not have any detimir, will reduced to 30 units BID at discharge,she was on 50 units BID at home. Current Visit: Yes Status: Chronic Assessment and Plan: A1C 7.9%, patient was on 70/30 50 units twice a day and the metformin twice a day at home, Increase Levemir to 30 units twice a day. continue lispro low dose sliding scale ac. carbs controlled diet. resume metformin (5) History of CVA (cerebrovascular accident) Current Visit: Yes Status: Chronic Assessment and Plan: continue to hold aspirin. I discussed with Dr Watt, he is ok to resume palvix and ASA (6) Morbid obesity with BMI of 50.0-59.9, adult Current Visit: Yes Status: Chronic (7) Leukocytosis, resolved, UA is unremarkable, and CXR was negative as well (8) anemia of acute post-op blood loss Current Visit: Yes Status: Acute Assessment and Plan: DVT Prophylaxis: on heparin subq. Discharge discussed with: patient Time spent discussing smoking cessation with patient: more than 10 minutes - Time Spent with Patient Total time spent providing and/or coordinating discharge services: Time spent: Greater than 30 minutes - Discharge Medications Prescriptions: New Docusate [Colace] 100 mg PO BID capsule Heparin 5,000 unit SQ Q8HCO vial Insulin LISPRO [HumaLOG] 0 units SQ ACHS vial Insulin DETEMIR [Levemir] 30 unit SQ BID [id number] HYDROcodone/Acet 5/325 mg [[place] 5-325 mg] 1 tab PO Q6HR PRN 7 Days #20 tablet PRN Reason: Moderate Pain Sennosides/Docusate Sodium [Senna Plus] 2 each PO BID PRN tablet PRN Reason: Constipation Continued Clopidogrel [Plavix] 75 mg PO DAILY Atorvastatin [Lipitor] 40 mg PO HS Aspirin [Ecotrin] 325 mg PO DAILY metFORMIN [Glucophage] 1,000 mg PO BID Discontinued Insulin NPH Hum/Reg Insulin Hm [Novolin 70-30 100 Unit/ml Vial] 50 unit SQ BID Home Medications: Aspirin [Ecotrin] 325 mg PO DAILY 09/20/17 [History] Atorvastatin [Lipitor] 40 mg PO HS 09/20/17 [History] Clopidogrel [Plavix] 75 mg PO DAILY 09/20/17 [History] metFORMIN [Glucophage] 1,000 mg PO BID 06/12/18 [History] Docusate [Colace] 100 mg PO BID capsule 06/15/18 [Rx] HYDROcodone/Acet 5/325 mg [[place] 5-325 mg] 1 tab PO Q6HR PRN 7 Days #20 tablet 06/15/18 [Rx] Heparin 5,000 unit SQ Q8HCO vial 06/15/18 [Rx] Insulin DETEMIR [Levemir] 30 unit SQ BID [id number] 06/15/18 [Rx] Insulin LISPRO [HumaLOG] 0 units SQ ACHS vial 06/15/18 [Rx] Sennosides/Docusate Sodium [Senna Plus] 2 each PO BID PRN tablet 06/15/18 [Rx] Allergies/Adverse Reactions: Allergy/AdvReac Type Severity Reaction Status Date / Time No Known Allergies Allergy Verified 06/17/15 20:42 Date of admission: 06/12/18 10:54 Primary care physician: Tani Mcclure Consults: 06/11/18 13:07 Consult to Orthopedic Surgery [CONS] Stat Consulting Provider: [facility] Reason for Consult: femoral fracture Call Completed: Yes 06/11/18 14:01 Consult to Cage Operator [CONS] Routine Reason for SW Consult: patient will need placement 06/11/18 17:08 Consult to Podiatry [CONS] Routine Consulting Provider: [facility]iat[facility] Reason for Consult: left great toe fracture Time Notified: 15:51 Call Completed: Yes 06/13/18 10:21 Consult to Occupational Therapy [CONS] Routine Comment: Evaluate, develop and implement POC Reason for Consult: postop Does patient have active BEDREST order?: No Is patient medically & hemodynamically stable?: Yes Patient assessed for mobility or mobilized this visit?: Yes Consult to Orthopedic Navigator [CONS] [CONS] Routine Consult to Physical Therapy [CONS] Routine Comment: Evaluate, develop and implement POC Reason for Consult: postop Does patient have active BEDREST order?: No Is patient medically & hemodynamically stable?: Yes Patient assessed for mobility or mobilized this visit?: Yes RT Post Op Consult [CONS] Routine - Constitutional Vitals: Temp Pulse Resp BP Pulse Ox 98.6 F 79 16 136/60 94 06/15/18 11:04 06/15/18 11:04 06/15/18 11:04 06/15/18 11:04 06/15/18 11:04 General appearance: Present: A&O X 3 Exam: CONSTITUTIONAL: patient appears as an age appropriate female in no acute distress. EYES Clear sclerae, bilateral pupils are equal, reactive to light. EMOI. RESPIRATORY: No accessory muscle use, bilateral clear to auscultation, no wheezing, no crackles/rales. CARDIOVASCULAR: Regular heart rate, normal S1 and S2, no murmurs GASTROINTESTINAL: bowel sounds present, soft, no tenderness. MUSCULOSKELETAL: Joints in normal range of motion, no clubbing, no edema, no cyanosis. Bilateral peripheral pulses 2+. NEUROLOGIC: CN II to XII are grossly intact, no focal neurological deficit.. - Patient Status Disposition: Transfer SNF Condition: Good Overall status at discharge: patient is not back to baseline - Discharge Instructions Follow Up With: Tani Mcclure DO [Primary Care Provider] - Forms: ED Satisfaction Letter - Diet and Activity Diet: diabetic diet
--- NOTE | 2018-06-15 12:54 | Physician Discharge Referral ---
ExtendedCare Referral Info Transfer To: SNF Provider in Charge after Transfer: PCP Institutional Level of Care: Skilled - Transfer Medications Prescriptions: HYDROcodone/Acet 5/325 mg [[place] 5-325 mg] 1 tab PO Q6HR PRN 7 Days #20 tablet PRN Reason: Moderate Pain Home Medications: Aspirin [Ecotrin] 325 mg PO DAILY 09/20/17 [History] Atorvastatin [Lipitor] 40 mg PO HS 09/20/17 [History] Clopidogrel [Plavix] 75 mg PO DAILY 09/20/17 [History] metFORMIN [Glucophage] 1,000 mg PO BID 06/12/18 [History] Docusate [Colace] 100 mg PO BID capsule 06/15/18 [Rx] HYDROcodone/Acet 5/325 mg [[place] 5-325 mg] 1 tab PO Q6HR PRN 7 Days #20 tablet 06/15/18 [Rx] Heparin 5,000 unit SQ Q8HCO vial 06/15/18 [Rx] Insulin DETEMIR [Levemir] 30 unit SQ BID [id number] 06/15/18 [Rx] Insulin LISPRO [HumaLOG] 0 units SQ ACHS vial 06/15/18 [Rx] Sennosides/Docusate Sodium [Senna Plus] 2 each PO BID PRN tablet 06/15/18 [Rx] Allergies/Adverse Reactions: Allergy/AdvReac Type Severity Reaction Status Date / Time No Known Allergies Allergy Verified 06/17/15 20:42 - Respiratory Orders Smoking Cessation: Smoking cessation has been advised. For more information, call the [place] Tobacco Quit Line at 8-018-DOXA-NOW. CERTIFICATION: I certify that the transfer of the above named patient to an Extended Care Facility is necessary for the continuing treatment of the diagnosis listed. The above information is true and accurate reflection of patient's current condition. Confidential - Redisclosure prohibited without a patient's written consent.
--- NOTE | 2018-06-15 13:14 | Event Note ---
Date of Encounter: 06/15/18 Time of Encounter: 12:15 Date of procedure: 06/13/18 Pre-op diagnosis: Displaced right distal femur fracture Post-op diagnosis: same Procedure: Open reduction internal fixation right femur fracture POD#2 Patient seen at bedside. Spouse at bedside. A&Ox3 ALEXA wrap in place - honeycomb dressing c/d/i No calf tenderness, erythema, or warmth. TROM brace in locked extension Bone stimulator on at present Neurovascularly intact b/l LE. Labwork, vitals, and medications reviewed. Pain control: Adequate Participating in PT/OT. All questions and concerns addressed. Educated on use of incentive spirometer, ambulation with nonweightbearing to the operative extremity, and hydration. Patient educated on post-operative restrictions and care. Addressed: NONweightbearing to RLE NO knee motion to right knee Remain in brace with wheels to either side of knee - remove for hygiene purposes only Leave dressing in place - change if greater than 50% saturated Bone stimulator 3 hours daily at same time each day Ice as needed for pain/swelling no more than 20-30 minutes each hour D/C plan: to rehab today per report Keep follow up outpatient ortho as scheduled
[2018-06-15 15:27] VITALS: BP 106/53
== END 2018-06-15 15:45 | DRG 481 ==
LOC: 3NENU 11:21 → EMEROOARM 11:21 → 3NENU 14:50 → SUATTDRO 06-12 10:54
PROVIDERS: ADMIT Internal Medicine; ATTEND Hospitalist

== ENCOUNTER 2021-06-16 07:39 | Observation (INO) ==
[2021-06-16] MEDS ORDERED: Ondansetron 4 MG/2 ML VIAL IVP ONE (07:51)
[2021-06-16 08:13] LABS: Basophils # 0.1 K/mcL (0.0-0.2); Basophils % 0.8 %; Eosinophils # 0.1 K/mcL (0.0-0.6); Hematocrit 41.2 % (35.3-44.9); Hemoglobin 13.4 g/dL (11.5-15.4); Immature Granulocytes % 0.4 % (0-4); Lymphocytes # 1.6 K/mcL (0.6-4.6); Mean Corpuscular HGB Conc 32.5 g/dL (31.6-35.5); Mean Corpuscular Hemoglobin 30.4 pg (28.0-33.3); Mean Corpuscular Volume 93.4 fL (83.0-100.0); Mean Platelet Volume 8.8 fL (9.4-12.4); Monocytes # 0.5 K/mcL (0.0-1.3); Monocytes % 4.9 %; Neutrophils # 7.3 K/mcL (1.6-8.9); Platelet Count 215 K/mcL (140-400); Red Blood Count 4.41 M/mcL (3.82-4.97); Red Cell Distribution Width 14.1 % (11.5-14.5); Segmented Neutrophils % 75.9 %; White Blood Count 9.6 K/mcL (4.3-11.1)
[2021-06-16 08:35] LABS: Alanine Aminotransferase 17 Units/L (7-52); Albumin 3.9 g/dL (3.5-5.7); Albumin/Globulin Ratio 1.2 (1.1-2.2); Alkaline Phosphatase 60 Units/L (34-104); Aspartate Amino Transferase 15 Units/L (13-39); BUN/Creatinine Ratio 12 (6-26); Bilirubin,Total 0.3 mg/dL (0.3-1.0); Blood Urea Nitrogen 15 mg/dL (8-23); Carbon Dioxide 23 mEq/L (23-29); Chloride 104 mEq/L (98-107); Creatine Kinase 55 Units/L (30-223); Globulin 3.3 g/dL (2.4-3.5); Glucose 239 mg/dL (70-105); Osmolality,Calculated 289 (280-300); Potassium 4.3 mEq/L (3.5-5.1); Sodium 135 mEq/L (136-145); Total Protein 7.2 g/dL (6.4-8.9); Troponin I < 0.03 ng/mL (< 0.04); eGFR For African Americans 52 (> 60); eGFR For Non-African Americans 43 (> 60)
[2021-06-16] MEDS ORDERED: 0.9 % Sodium Chloride 1,000 ML IVC ONE (08:38)
[2021-06-16] MEDS ORDERED: Famotidine 20 MG/2 ML VIAL IVP ONE (08:57)
[2021-06-16] MEDS ORDERED: Isovue-370 500 ML BOTTLE IVP ONE (09:57)
[2021-06-16] MEDS ORDERED: Metoclopramide 10 MG/2 ML VIAL IVP ONE (11:52)
[2021-06-16] MEDS ORDERED: Prochlorperazine 10 MG/2 ML VIAL IVP ONE (12:20)
[2021-06-16] MEDS ORDERED: Ondansetron 4 MG/2 ML VIAL IVP PRN (12:21)
[2021-06-16] MEDS ORDERED: Dextrose 4 GM Chewable Tablets PO PRN ×2 (12:51)
[2021-06-16] MEDS ORDERED: *HR* Dextrose 50 % in Water (Syg) 50 ML SYRINGE IVP PRN (12:51)
[2021-06-16] MEDS ORDERED: D5% in Water 1,000 ML IVC PRN (12:51)
[2021-06-16] MEDS ORDERED: Perflutren Lipid Microsphere 1.3 ML in 0.9 % Sodium Chloride 8.7 ML IVP PRN (13:43)
[2021-06-16] MEDS ORDERED: 0.9 % Sodium Chloride 1,000 ML IVC SCH (13:45)
[2021-06-16] MEDS ORDERED: *HR* Heparin 5,000 UNIT/ML VIAL SQ SCH (14:00)
[2021-06-16 14:50] LABS: INR 2.4; Prothrombin Time 26.6 Seconds (9.4-12.1)
[2021-06-16 15:46] LABS: Bacteria,Urine Few per hpf (None-Few); Bilirubin,Urine Negative (Negative); Blood,Urine Negative (Negative); Clarity,Urine Clear (Clear); Color,Urine Light-Yellow (Yellow); Glucose,Urine (UA) Normal (Normal); Ketones,Urine Negative (Negative); Leukocyte Esterase,Urine Moderate (Negative); Mucus,Urine Few per lpf (None-Few); Nitrite,Urine Positive (Negative); Protein,Urine Negative (Neg-Trace); RBC,Urine 0-3 per hpf (0-3); Specific Gravity,Urine 1.021 (1.010-1.025); Squamous Epithelial Cell,Urine Few per hpf (None-Few); Urobilinogen,Urine Normal (Normal)
[2021-06-16] MEDS ORDERED: Warfarin perPT PO PRN (18:00)
[2021-06-16] MEDS ORDERED: *HR* Warfarin 4 MG TABLET PO ONE (18:00)
[2021-06-16] MEDS: Insulin LISPRO 300 UNITS/3 ML VIAL SUBQ SCH (18:33)
[2021-06-16] MEDS ORDERED: Insulin LISPRO 300 UNITS/3 ML VIAL SUBQ SCH (21:00)
[2021-06-16] MEDS: predniSONE 20 MG TABLET PO SCH (22:59)
[2021-06-17 03:03] LABS: INR 2.3; Prothrombin Time 25.4 Seconds (9.4-12.1)
[2021-06-17 03:21] LABS: Albumin 3.6 g/dL (3.5-5.7); Albumin/Globulin Ratio 1.6 (1.1-2.2); Bilirubin,Total 0.4 mg/dL (0.3-1.0); Calcium 8.6 mg/dL (8.6-10.3); Chol/HDL Ratio 5.8 (0-4.9); Globulin 2.3 g/dL (2.4-3.5); Total Protein 5.9 g/dL (6.4-8.9)
[2021-06-17 06:53] VITALS: BP 147/70; PULSE 58; TEMP 97.8; O2SAT 92
[2021-06-17] MEDS: predniSONE 20 MG TABLET PO SCH (08:27)
[2021-06-17] MEDS: Insulin LISPRO 300 UNITS/3 ML VIAL SUBQ SCH (08:28)
[2021-06-17] MEDS ORDERED: Acyclovir 200 MG CAPSULE PO SCH (09:00)
[2021-06-17 09:11] LABS: Estimated Average Glucose 146 mg/dl; Hemoglobin A1C 6.7 %
== END 2021-06-17 10:28 | disposition home or self-care (01) ==
LOC: EMEROOARM 07:39 → 3BNU 07:39 → SUATTDRO 11:35 → 3BNU 12:27
PROVIDERS: ADMIT Student in an Organized Health Care Education/Training Program; ATTEND Registered Nurse